=== PATIENT | female | born 1940 | race Caucasian/White ===

== ENCOUNTER → 2016-11-29 | Outpatient (CLI) | payer OTHER ==
[~2016-11-29] VITALS: Ht 160 cm; Wt 76.7 kg
[~2016-11-29] MED LIST: ACETAMINOPHEN325 M1; ACETAMINOPHEN325 M1 PO; ADULT LOW DOSE81 MG PO; ASA81BEC PO; ATORVASTATIN CA40 MG PO; AUGMENTIN 875875 M1; B-100 COMPLEX1 EAC1 PO; BACLOFEN 10MG T10 MG PO; CARBAMAZEPINE100 MG PO; CARBIDOPA-LEVO1 EAC3 PO; CELEBREX 200 M200 M1 PO; CLONAZEPAM 0.50.5 M1 PO; CLONAZEPAM 1 MG1 M1 PO; CLONAZEPAM PO; COLACE100 MG PO; COQ-10100 MG PO; COUMADIN 2 MG TA2 M1; COUMADIN 5 MG TA5 M1; CYCLOBENZAPRINE10 MG PO; CYCLOSET0.8 MG PO; ENOXAPARIN60 MG/0.6 SUBQ; FLAX OIL1000 MG PO; FLEXERIL PO; FLONASE 0.05%50 MCG; GLUCOPHAGE XR500 MG PO; GLUCOPHAGE XR750 MG PO; GLUCOSE4 GM; GLYCOLAX POWDER17 G1 PO; HUMALOG MI100 UNIT/6 SC; HUMALOG PE100 UNIT/1 SUBQ; HYDROCODON-ACE1 EAC5 PO; HYDROCODON-ACE1 EAC7 PO; HYSINGLA ER40 MG PO; IRON325 PO; JANUVIA 50 MG T50 M1 PO; KLONOPIN1 MG PO; LANTUS SUBQ; LANTUSSOLASTAR SQ; LASIX 40 MG TAB40 M1 PO; LEVOTHYROXIN0.025 MG PO; LEVOTHYROXINE0.05 MG PO; LIDODERM 5%1 PATC1 TRANSDERM; LIDODERM 5%1 PATCH TOP; LIORESAL 10 MG10 MG PO; LIPITOR 20 MG T20 M1 PO; LORTAB 5 MG/5001 TA1 PO; LYRICA 75 MG CA75 MG PO; MECLIZINE HCL25 M1 PO; METANX CAPSULE1 EACH PO; METHOCARBAMOL750 MG; METOPROLOL SUCC25 M1 PO; MIRALAX255 GM PO; MOBIC15 MG PO; MOBIC7.5 MG PO; NEURONTIN 300300 M1 PO; NEURONTIN 300M300 M2 PO; NORCO 10-325 T1 EACH PO; NORCO 5-325 TA1 EACH PO; NORTRIPTYLINE H25 M3 PO; NORTRIPTYLINE H50 M3 PO; NOVOLOG100 UNIT/1; NOVOLOG100 UNIT/1 SQ; OXYCODON-ACETA1 EAC1 PO; OXYCODONE HCL5 M1 PO; OXYCODONE-ACET1 EAC2; OXYCONTIN10 M1 PO; OXYCONTIN20 M1 PO; OXYCONTIN20 MG PO; OXYCONTIN30 MG PO; PAXIL10 MG PO; PERCOCET 5-3251 EACH; PERCOCET 7.5-31 EACH PO; PROZAC 20 MG20 M1 PO; QUINAPRIL 20 MG20 MG PO; QUINU10 PD PO; RANEXA1000 MG PO; ROBAXIN500 MG PO; ROSUVASTATIN CA20 MG PO; SAVELLA100 MG PO; SAVELLA50 MG PO; SIMVASTATIN20 MG PO; SIMVASTATIN40 MG PO; TIZANIDINE HCL4 M1 PO; TIZANIDINE HCL4 MG PO; TRICOR48 MG PO; TRILEPTAL 300300 MG PO; UNICOMPLEX M TA1 TA1 PO; VANCOMYCIN HCL 11 G2 IVPB; VISTARIL 25 MG25 M1 PO; VITAMIN D 5050000 I1 PO; VITAMIN D1000 UNI1 PO; VITAMIN D400 UNI1 PO; VOLTAREN GEL 1100 G1 TOP; [UNRECOGNIZED DRUG - OTHER] PO; [UNRECOGNIZED DRUG - SUPPLY]
--- NOTE | ~2016-11-29 | HPC ---
[facility] [address] [place] [address] PAIN MANAGEMENT CONSULTATION Name: ISIDRA DOWNS Room #: REG [facility].#: [id number] Admission: 11/29/16 Attend Phys: Scot Gramajo DO Discharge: Date of : 38 Report #: [id number] THIS REPORT FOR: //name// CC: RITA Gramajo DATE OF SERVICE: 11/29/2016 REFERRING PHYSICIAN: Rita Yanes M.D. CHIEF COMPLAINT: Low back pain. HISTORY OF PRESENT ILLNESS: As you know, the patient is a 76-year-old female who suffers from low back pain due to failed lumbar spine surgery. She ultimately has undergone a spinal cord stimulator implantation with good efficacy. She continues to experience axial back pain due to continued facet arthropathy. She states this axial back pain has become more problematic over time. She wishes to discuss options for treatment. She indicates pain is sharp and throbbing, places pain score at 6/10, states the pain is exacerbated with standing, walking, improves with medications and spinal cord stimulator. The patient has completely weaned off of opioids as she is found them ineffective. She returns to discuss either changes in medication therapy or interventional treatments to determine if her symptoms would be amenable before surgical options be entertained. ALLERGIES: COMPAZINE AND ADHESIVE TAPES. CURRENT MEDICATIONS: Clonazepam, atorvastatin, multivitamins, insulin, paroxetine, aspirin, metoprolol, flaxseed oil, quinapril. IMAGING: No new imaging available. PHYSICAL EXAMINATION: VITAL SIGNS: Blood pressure 121/52, pulse 84, respiratory rate 18, unlabored. The patient is 97% on room air, height 5 feet 3 inches tall, weight 169 pounds, BMI calculated 29.9. GENERAL: Well-developed, well-nourished, well-hydrated 76-year-old female appearing her stated age. She is in no acute distress, awake, alert, oriented x 3. Current pain score 6/10. HEENT: Normocephalic, atraumatic. Pupils equal, round, reactive to light. Extraocular muscles are intact. EXTREMITIES: Show no clubbing, no cyanosis, no edema. MUSCULOSKELETAL: The patient continues to use a roller walker for ambulation. Seated straight leg raising negative. Supine straight leg raising negative. Amber's test negative. Modified Gaenslen's positive for [place] [address] PAIN MANAGEMENT CONSULTATION Name: ISIDRA DOWNS Room #: REG [facility]#: [id number] Admission: 11/29/16 Attend Phys: Scot Gramajo DO Discharge: Date of : 38 Report #: [id number] There is some palpatory tenderness over the paraspinal musculature of lower lumbar spine, no spinous process tenderness. ASSESSMENT: 1. Failed lumbar spine surgery. 2. Post-laminectomy syndrome. 3. Lumbosacral spondylosis without radiculopathy. 4. Chronic intractable pain. 5. 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 PLAN: 1. The patient returns today in followup visit indicating axial back pain issues. As you are aware, the patient suffers from failed lumbar spine surgery and post-laminectomy syndrome. We have implanted a spinal cord stimulator with good efficacy when discussing low back and lower extremity symptoms unfortunately the axial back pain she has been experiencing has progressed. I do feel her symptoms are more related to facet arthropathy. We discussed with the patient treatment options for facet arthropathy pain. The following was discussed with the patient today. The patient and I discussed physical therapy, stretching exercise core strengthening. This will be a major component of the patient's treatment. She will need to reinitiate her physical therapy, stretching exercises. A formalized program may be necessary to help determine the most appropriate physical therapy options for core strengthening and back muscle strengthening. Again, this will be a core treatment option within a garment of treatments for her symptoms. We also discussed medication management with a consistent nonsteroidal anti-inflammatory and all a localized pain patch that can be placed that is nonopioid related. We also discussed with the patient intraarticular facet injections, medial branch nerve blocks, radiofrequency lesioning as possible treatment options and surgical fusion. After reviewing risks and benefits of all proposed treatment options, the patient chose to begin with medication therapy. She is going to consider medial branch nerve blocks as possible treatment option. 2. The patient was provided a prescription of meloxicam 7.5 mg 1 tab p.o. b.i.d. I have given the patient #60, no refills. We wish to trial this medication for the next month. If it is effective, then move forward with continuation of therapy. We will start the patient on the medication today. Review its efficacy at followup visit. 3. The patient is complaining of some continued postherpetic pain. She has requested of our services, Lidoderm patch. Apparently, she was receiving this patch from her primary care physician, but she has had many changes in PCP's and they have stopped prescribing this medication. We have provided the patient with Lidoderm patch #30 and have provided 2 refills. The patient will need to follow up with a PCP for continuation of this therapy. 4. The patient will be continued on clonazepam 1 mg dose. This is to help with [address] [address] PAIN MANAGEMENT CONSULTATION Name: ISIDRA DOWNS Room #: REG [facility]#: [id number] Admission: 11/29/16 Attend Phys: Scot Gramajo DO Discharge: Date of : 38 Report #: [id number] the muscle spasming and restlessness that she experiences at night. She was given #30 tablets, she is to take 1 tab per night, given this prescription with two refills. 5. The patient and I did discuss radiofrequency lesioning as a possible treatment option for her facet arthropathy. We also discussed surgical options. Again, we indicated that for us to continue to treat her symptoms from an axial back pain standpoint, she will need to participate daily in physical therapy initially a formalized program followed by continued home treatment. She understands. She is going to discuss this with family and determine where she wishes to move forward, whether it be interventional or medication management. 6. The patient will return to our clinic on an as needed basis and contact us in regards to her requested treatment. By: [id number] Scot Gramajo DO /nt
[2016-11-29 13:14] VITALS: BP 121/52
== END ==
LOC: PAIN 10:29
DX: M47.817 Spondylosis without myelopathy or radiculopathy, lumbosacral region (principal); M96.1 Postlaminectomy syndrome, not elsewhere classified; G89.29 Other chronic pain; I10 Essential (primary) hypertension; F32.9 Major depressive disorder, single episode, unspecified; Z79.82 Long term (current) use of aspirin; Z79.4 Long term (current) use of insulin

== ENCOUNTER → 2017-03-29 | Outpatient (CLI) | payer OTHER ==
[~2017-03-29] VITALS: Ht 160 cm; Wt 72.1 kg
[~2017-03-29] MED LIST changes: +LIDODERM1 EACH TOP; +NEURONTIN300 MG PO
--- NOTE | ~2017-03-29 | HPC ---
[facility] [address] [address] PAIN MANAGEMENT CONSULTATION Name: ISIDRA DOWNS Room #: REG [facility] Kaylah#: [id number] Admission: 03/29/17 Attend Phys: Scot Gramajo DO Discharge: Date of : 38 Report #: [id number] THIS REPORT FOR: //name// CC: Roly Gramajo DATE OF SERVICE: 03/29/2017 CHIEF COMPLAINT: Low back pain, lower extremity pain and paresthesias. HISTORY OF PRESENT ILLNESS: As you know, the patient is a 76-year-old female who suffers from failed lumbar spine surgery and has undergone a spinal cord stimulator with good improvement in her lower extremity symptoms. Unfortunately, she has point specific pain in the right lower back that causes pain levels of 3/10. States her pain is sharp and aching in sensation, is exacerbated with standing, walking, sitting, improves with spinal cord stimulator and medication. She returns today in followup visit stating that they have adjusted her spinal cord stimulator multiple times and is not covering the lower portion of the back. I did advise the patient at last visit and again this visit that the spinal cord stimulator will not provide improvement in this area. She would need to seek either rhizotomy or some type of more aggressive treatment to address this point specific upper lumbar lower thoracic pain. This is likely due to the surgical issues sustained during the failed lumbar spine surgery. She returns today in followup visit for medication management. ALLERGIES: COMPAZINE AND ADHESIVE TAPE. CURRENT MEDICATIONS: Clonazepam, atorvastatin, multivitamins, insulin, paroxetine, aspirin, metoprolol, flaxseed oil, quinapril, Lidoderm. IMAGING: No new imaging available. PHYSICAL EXAMINATION: VITAL SIGNS: Blood pressure 128/70, pulse is 64, respiratory rate 16, unlabored. The patient is 96% on room air. Height 5 feet 3 inches tall, weight approximately 170 pounds. GENERAL: Well-developed, well-nourished, well-hydrated 76-year-old female appearing stated age, placing pain score today 3/10. HEENT: Normocephalic, atraumatic. Pupils are equal, round, reactive to light. Extraocular muscles are intact. EXTREMITIES: Show no clubbing, no cyanosis, no edema. MUSCULOSKELETAL: The patient uses a roller walker for ambulation. Seated straight leg raising negative. Supine straight leg raising is now negative. Roman's test negative. Modified Gaenslen is positive for some axial low back pain, there is point specific pain located in the upper lumbar lower thoracic [address] [address] PAIN MANAGEMENT CONSULTATION Name: ISIDRA DOWNS Room #: REG [facility]#: [id number] Admission: 03/29/17 Attend Phys: Scot Gramajo DO Discharge: Date of : 38 Report #: [id number] area, appears to be related to the surgical underlying scar tissue and changes. ASSESSMENT: 1. Failed lumbar spine surgery. 2. Post-laminectomy syndrome. 3. Lumbosacral spondylosis with radicular symptoms. 4. Facet arthropathy of the lumbar spine. 5. Neural foraminal stenosis of lumbar spine. 6. Chronic intractable pain. PLAN: 1. The patient returns today in followup visit indicating pain score of 3/10. She states that the spinal cord stimulator is working well for leg and low back symptoms, but is not covering this one point specific area in the upper lumbar lower thoracic area. The patient and I have discussed in the past that options from surgical standpoint could be a rhizotomy of the sensory nerve leading to the area. That would be an option for the patient. I believe more aggressive treatment in this patient's case will be necessary. Conservative medical therapy has failed in trying to alleviate this symptom as had the spinal cord stimulator, though we did not expect the cord stimulator to provide improvement in this area. She has appointment back with her neurosurgeon to discuss options, will defer to the surgery team to discuss the options they may be able to provide. Again, it does not appear that conservative treatment from a pain management standpoint will alleviate the symptoms she is experiencing at this time. 2. The patient was provided a prescription of clonazepam 1 mg dose 1 tab p.o. q.a.m. I have given the patient #30 tablets, 2 refills, 3 months' worth of medication. 3. The patient was provided a prescription of meloxicam 7.5 mg 1 tab p.o. b.i.d., #60, two refills. 4. The patient was provided a prescription of Lidoderm patch 5%. She was given #30 patches to provide analgesia for 12 hours on and 12 hours off. She was given 2 refills, 3 months' worth of Lidoderm patches. 5. We will see the patient back in followup visit in 3 months for medication therapy or earlier if they wish to discuss adjustments in her spinal cord stimulator. By: [id number] Scot Gramajo DO /nt
[2017-03-29 10:24] VITALS: BP 133/70
== END | disposition home or self-care (01) ==
LOC: PAIN 07:21
DX: M47.27 Other spondylosis with radiculopathy, lumbosacral region (principal); G89.29 Other chronic pain; M96.1 Postlaminectomy syndrome, not elsewhere classified; M12.88 Other specific arthropathies, not elsewhere classified, other specified site; Z98.890 Other specified postprocedural states; Z88.6 Allergy status to analgesic agent; Z79.899 Other long term (current) drug therapy

== ENCOUNTER → 2017-06-23 | Outpatient (CLI) | payer OTHER ==
[~2017-06-23] MED LIST changes: +PYRIDIUM200 MG PO; +ZOFRAN ODT8 MG PO
== END ==
LOC: RAD 01:18
DX: Z12.31 Encounter for screening mammogram for malignant neoplasm of breast (principal)

== ENCOUNTER → 2018-05-08 | Outpatient (CLI) | payer OTHER ==
[~2018-05-08] VITALS: Ht 160 cm; Wt 66.2 kg
[~2018-05-08] MED LIST changes: +MIRALAX17 GM PO; +ROXICODONE5 MG PO; +SYNTHROID112 MC1 PO; +VICTOZA0.6 MG/0.1 SUBQ
--- NOTE | ~2018-05-08 | HPC ---
[facility] [address] [place] [address] PAIN MANAGEMENT CONSULTATION Name: ISIDRA DOWNS [facility] [id number] Admission: 05/08/18 Attend Phys: Scot Gramajo DO Discharge: Date of : 38 Report #: [id number] THIS REPORT FOR: //name// CC: Roly HOGUEROS Physician staff DATE OF SERVICE: 05/08/2018 REFERRING PHYSICIAN: Roly Yanes MD CHIEF COMPLAINT: Mid back pain and low back pain. HISTORY OF PRESENT ILLNESS: As you know, the patient is a 77-year-old female who was originally seen by [facility] for failed lumbar spine surgery where she underwent a spinal cord stimulator with good improvement in her lower extremity symptoms, did not get improvement in axial back, though she was warned about this prior to the implantation. She continues to experience axial back pain uncovered by the spinal cord stimulator. The patient reports acute onset of intense upper back pain for which she sought multiple physician treatments ultimately finding out that she had a compression fracture at T12. She underwent vertebral augmentation at an outpatient facility and unfortunately this provided no pain improvement. She was advised by that physician that "he had nothing more to offer and she needed to seek pain management." It appears that the patient had a vertebral augmentation that was suboptimal in its positioning and did not improve the fracture pain that is noted to be most improved with kyphoplasty. She was subsequently referred to our clinic for failed vertebral augmentation. ALLERGIES: COMPAZINE AND ADHESIVE TAPE. CURRENT MEDICATIONS: Lantus, metoprolol, aspirin, paroxetine, quinapril, vitamin D, lovastatin, meloxicam, Victoza, levothyroxine, MiraLax. SOCIAL HISTORY: The patient denies tobacco, alcohol, IV or illicit drug use. She is retired. Accompanied by her , present in room today. IMAGING: There is no new imaging available. PQRS: The patient has known osteoarthritis of the low back, bilateral hips and bilateral knees. No rheumatoid arthritis. She is placing pain intensity today at around 7/10 while seated, 10/10 with activity. She is a fall risk, has had a fall in the last 3 months. She is not on blood thinners. She is treated for hypertension. She is not on opioids. Her pain impact is 70/70, complete interference of daily activities secondary to pain. [address] [address] PAIN MANAGEMENT CONSULTATION Name: ISIDRA DOWNS Room #: REG [facility]#: [id number] Admission: 05/08/18 Attend Phys: Scot Gramajo DO Discharge: Date of : 38 Report #: [id number] PHYSICAL EXAMINATION: VITAL SIGNS: Blood pressure 153/81, pulse 85, respiratory rate 20 and unlabored. The patient is 100% on room air. Height 5 feet 3 inches tall, weight 146 pounds, BMI calculated 25.9. GENERAL: Well-developed, well-nourished, well-hydrated 77-year-old female, emotion is labile, placing current pain score at 7-10/10. HEENT: Normocephalic, atraumatic. Pupils equal, round, reactive to light. NEUROLOGIC: Speech is fluent. LUNGS: Clear, no wheeze, rhonchi or rales. CARDIOVASCULAR: Regular. No appreciable gallop, no rub. ABDOMEN: Soft, mildly obese, normoactive bowel sounds. EXTREMITIES: Show no clubbing, no cyanosis, no edema. MUSCULOSKELETAL: The patient does have some palpatory tenderness over the paraspinal musculature of lower lumbar spine, no spinous process tenderness. The patient is using a roller walker for ambulation. Seated straight leg raising negative. Supine straight leg raising negative. Roman's test negative. Modified Gaenslen's positive for axial low back pain. Ankle clonus negative. Babinski is negative. Muscle bulk and tone symmetrical in lower extremities, deconditioning noted bilaterally. ASSESSMENT: 1. 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 3. Lumbosacral spondylosis with radiculopathy. 4. Facet arthropathy of the lumbar spine. 5. Neural foraminal stenosis of the lumbar spine. 6. Chronic intractable pain. PLAN: 1. The patient has returned to our clinic having undergone an unsuccessful vertebral augmentation at T12. I do not have imaging available, but it appears by her report that the augmentation itself was unsuccessful in alleviating any of her back pain. We will attempt to obtain the imaging of the thoracic spine as I believe that there has been a suboptimal procedure to address the fracture. Unfortunately, this is not amenable to repeating kyphoplasty given the methyl methacrylate that would have been used in the augmentation prior. This leaves us with very little options other than to have the patient begin TLSO bracing and medication management. We do request the patient undergo x-ray imaging at this point, so we can determine the level of pathology that exists, so that we can help direct her care further. 2. The patient will be sent for AP and lateral imaging of the thoracolumbar area. We wish to evaluate the T12 compression fracture itself, determine whether or not the augmentation will ultimately be successful or whether or not more aggressive treatment may be necessary including surgical options. 3. The patient was sent for sizing of a [place] brace. [place] bracing is the [address] [address] PAIN MANAGEMENT CONSULTATION Name: ISIDRA DOWNS Room #: REG [facility]#: [id number] Admission: 05/08/18 Attend Phys: Scot Gramajo DO Discharge: Date of : 38 Report #: [id number] previous gold standard for treatment for compression fractures of the thoracolumbar area. The bracing was trialled here with a similar device and she reported good improvement in symptoms while seated and standing. I will send the patient for the Paul bracing to be fitted in the next 24-48 hours. 4. The patient will be started on oxycodone. I have given her 5 mg tablets 1 tab p.o. t.i.d. p.r.n. pain, #90. I have advised the patient to take this medication only when pain is intolerable, not to rely on this medication prophylactically. She will watch for side effects of somnolence, decreased mental acuity, disorientation, confusion and constipation with its use. 5. We will see the patient back in followup visit in approximately one month. Hopefully, at that time, her back pain has begun to improve. She will be utilizing the [place] bracing when seated and standing. We will obtain film at next visit of the thoracolumbar area to determine whether or not there has been corticalization of the T12 fracture and we can begin to wean her off the bracing system. By: [id number] Scot Gramajo DO /saroj
[2018-05-08 13:35] VITALS: BP 153/81
== END | disposition home or self-care (01) ==
LOC: PAIN 06:39
DX: M47.27 Other spondylosis with radiculopathy, lumbosacral region (principal); M12.88 Other specific arthropathies, not elsewhere classified, other specified site; M99.73 Connective tissue and disc stenosis of intervertebral foramina of lumbar region; G89.29 Other chronic pain; E11.22 Type 2 diabetes mellitus with diabetic chronic kidney disease; I12.9 Hypertensive chronic kidney disease with stage 1 through stage 4 chronic kidney disease, or unspecified chronic kidney disease; N18.9 Chronic kidney disease, unspecified; Z88.8 Allergy status to other drugs, medicaments and biological substances; Z91.09 Other allergy status, other than to drugs and biological substances; Z79.899 Other long term (current) drug therapy; Z79.4 Long term (current) use of insulin; Z79.82 Long term (current) use of aspirin

== ENCOUNTER → 2018-05-30 | Outpatient (CLI) | payer OTHER ==
[~2018-05-30] VITALS: Ht 160 cm; Wt 65.4 kg
[~2018-05-30] MED LIST changes: +METHOCARBAMOL500 M2 PO
--- NOTE | ~2018-05-30 | HPC ---
[facility] [address] [place] [address] PAIN MANAGEMENT CONSULTATION Name: ISIDRA DOWNS Room #: REG [facility] Kaylah#: [id number] Admission: 05/30/18 Attend Phys: Scot Gramajo DO Discharge: Date of : 38 Report #: [id number] THIS REPORT FOR: //name// CC: Dr. Corrina CLARKE Physician staff DATE OF SERVICE: 05/30/2018 REFERRING PHYSICIAN: Dr. Corrina Clarke. CHIEF COMPLAINT: Mid back pain and low back pain. HISTORY OF PRESENT ILLNESS: As you know, the patient is a 77-year-old female originally seen by [facility] for failed lumbar spine surgery and underwent spinal cord stimulator implant with good improvement in her symptoms. She underwent implantation of the spinal cord stimulator, but is having difficulty with obtaining improvement in low back symptoms. She has been experiencing axial back pain due to facet changes for some time. She was lost to followup visit until she returned after undergoing an unsuccessful vertebral augmentation at the T12 level, which provided according to the patient no improvement in symptoms. She returned to discuss treatment options. She is having increasing back pain for which she was placed in a TLSO brace. She returns for medication adjustments and discuss her increasing back pain of late. No new injury, no new trauma. ALLERGIES: COMPAZINE AND ADHESIVE TAPE. CURRENT MEDICATIONS: Lantus, metoprolol, aspirin, paroxetine, quinapril, vitamin D, lovastatin, meloxicam, Victoza, levothyroxine, MiraLax, oxycodone, clonazepam. SOCIAL HISTORY: The patient denies tobacco, alcohol, IV or illicit drug use. She is retired, retired years ago, unaccompanied today. IMAGING: No new imaging available. PQRS: The patient has known osteoarthritic change to the low back, bilateral hips, bilateral knees and no rheumatoid arthritis. She is placing pain intensity at this visit as 2-3/10. She is a fall risk and has had multiple falls in the last 3 months. She is not on blood thinners. She is treated for hypertension. She is on opioids, but not for an extended period of time. Pain impact score rated at 60/70, near complete interference of daily activities secondary to pain. [address] [address] PAIN MANAGEMENT CONSULTATION Name: ISIDRA DOWNS Room #: REG [facility]#: [id number] Admission: 05/30/18 Attend Phys: Scot Gramajo DO Discharge: Date of : 38 Report #: [id number] PHYSICAL EXAMINATION: VITAL SIGNS: Blood pressure 110/52, pulse 65, respiratory rate 20 and unlabored. The patient is 100% on room air. Height 5 feet 3 inches tall, weight 144.2 pounds, BMI calculated 25.6. GENERAL: Well-developed, well-nourished, well-hydrated 77-year-old female appearing stated age, placing current pain score around 2-3/10. HEENT: Normocephalic, atraumatic. Pupils equal, round, reactive to light. Extraocular muscles are intact. Sclerae nonicteric without injection. NEUROLOGIC: Cranial nerves 2-12 grossly intact. Speech is fluent. EXTREMITIES: Show no clubbing, no cyanosis, no edema. MUSCULOSKELETAL: The patient has some palpatory tenderness noted over the T11-T12 area. No erythema, no drainage, no changes in skin color or texture concerning of zoster. Deep inhalation and exhalation causes intensification of pain. Seated straight leg raising negative. Supine straight leg raising negative. Roman's test negative. Modified Gaenslen's positive for axial low back pain. ASSESSMENT: 1. 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 3. Lumbosacral spondylosis with radiculopathy. 4. Facet arthropathy of the lumbar spine. 5. Neural foraminal stenosis of lumbar spine. 6. Chronic intractable pain. PLAN: 1. The patient has returned today in followup visit with ever increasing back pain in and around the T12 level. I am concerned of a possible fracture, either above or below the T12 that may be contributing to the patient's symptoms. I will recommend the patient undergo x-ray imaging immediately. We will obtain AP and lateral x-ray imaging, if fractures are noted, we will contact the patient. The patient will undergo this x-ray imaging today. She can call for findings tomorrow. 2. The patient was provided prescription of oxycodone 5 mg dose 1 tab p.o. t.i.d. I have given the patient #90 tablets, releasing today and 4 weeks from today, 2 months' worth of medication. I advised the patient to take the medication only when pain is intolerable, not to rely on the medication prophylactically. 3. We will contact the patient once the x-ray imaging is completed. We will discuss the findings and determine if interventional treatments or medication management with TLSO bracing would be appropriate. By: [id number] Scot Gramajo DO /nt
[2018-05-30 11:06] VITALS: BP 110/52
== END ==
LOC: PAIN 10:09
DX: M54.6 Pain in thoracic spine (principal); I10 Essential (primary) hypertension

== ENCOUNTER → 2018-06-05 | Outpatient (CLI) | payer OTHER ==
[~2018-06-05] VITALS: Ht 160 cm; Wt 65.8 kg
--- NOTE | ~2018-06-05 | HPC ---
[facility] [place] [address] PAIN MANAGEMENT CONSULTATION Name: ISIDRA DOWNS Room #: REG [facility].#: [id number] Admission: 06/05/18 Attend Phys: Scot Gramajo DO Discharge: Date of : 38 Report #: [id number] THIS REPORT FOR: //name// CC: Roly Simon Physician staff DATE OF SERVICE: 06/05/2018 CHIEF COMPLAINT: Mid back pain. HISTORY OF PRESENT ILLNESS: As you know, the patient is a 77-year-old female who suffered a spontaneous vertebral compression fracture at T12 with unsuccessful vertebral augmentation with continued pain. She continued to experience symptoms for which she was seen last week. I was concerned of possible spontaneous fracture of a vertebral level either above or below the compression fracture at T12, which is fairly typical in osteoporotic patients. We sent the patient for x-ray imaging and it did show deformity of T11, which is new compression fracture from the study of 05/08/2018. She returns today to discuss treatment options for this compression fracture found on x-ray imaging. ALLERGIES: COMPAZINE AND ADHESIVE TAPE. CURRENT MEDICATIONS: Lantus, metoprolol, aspirin, paroxetine, quinapril, vitamin D, lovastatin, meloxicam, Victoza, levothyroxine, MiraLax, and oxycodone. SOCIAL HISTORY: The patient denies tobacco, alcohol, IV or illicit drug use. She is retired. She is accompanied by her , her daughter and both had been present in room today. IMAGING: No new imaging available. PQRS: The patient has known osteoarthritic changes of low back, bilateral hips and bilateral knees. No rheumatoid arthritis. She is placing pain intensity today at a level of 5/10. She is not a fall risk and has not had a fall in the last few months. She is not on blood thinner. She is treated for hypertension. She has been on chronic opioids, but has a low addiction potential. She is placing pain impact score at 59/70 severe interference of daily activities secondary to pain. PHYSICAL EXAMINATION: VITAL SIGNS: Blood pressure 136/67, pulse is 71, respiratory rate 14 and unlabored. The patient is 98% on room air. Height 5 feet 3 inch tall, weight [address] [address] PAIN MANAGEMENT CONSULTATION Name: ISIDRA DOWNS Room #: [facility].#: [id number] Admission: 06/05/18 Attend Phys: Scot Gramajo DO Discharge: Date of : 38 Report #: [id number] 145 pounds and BMI calculated 25.7. GENERAL: Well-developed, well-nourished, well-hydrated 77-year-old female, appears her stated age. She is in mild distress secondary to pain, placing current pain score 5/10. HEENT: Normocephalic and atraumatic. Pupils are equal, round and reactive to light. EXTREMITIES: Show no clubbing, no cyanosis and no edema. MUSCULOSKELETAL: There is palpatory tenderness noted over the paraspinal musculature of the lower lumbar spine. This is fairly typical for the patient. Well-healed surgical scars. A spinal cord stimulator is in place and appears to be functioning. Seated straight leg raising is negative. Supine straight leg raising is negative. Roman's test negative. Modified Gaenslen's positive for axial low back pain. ASSESSMENT: 1. Acute T11 vertebral compression fracture. 2. Failed vertebral augmentation at T12. 3. Failed lumbar spine surgery. 4. Lumbosacral spondylosis with radiculopathy. 5. Facet arthropathy of the lumbar spine. 6. Lumbar degeneration. 7. Osteoporosis. 8. Chronic intractable pain. PLAN: 1. The patient returns today in followup visit where we have reviewed her recent x-ray imaging. The x-ray imaging does show a new compression fracture of T11. The new compression fracture was not seen on the imaging study of 05/08/2018. This is likely due to a change in mechanical forces from the T12 compression fracture. The patient and I discussed treatment options for the T11 compression fractures and following discuss today. We discussed physical therapy, stretching exercise, core strengthening as a treatment option. We discussed TLSO bracing to maintain stability allowing the T11 fracture to heal over time. We discussed TLSO bracing with medication management to adjust medications to address ongoing pain issues while she continues to utilize the TLSO brace for stabilization. We also discussed kyphoplasty procedure be performed under general anesthesia to address the T11 compression fracture with bilateral balloon deployment allowing us to stabilize the bone more effectively. After reviewing the risks and benefits of all the proposed treatment options, the patient chose to undergo kyphoplasty procedure at the T11 level. 2. The patient will be established an appointment at our [facility] office on morning 7:30 a.m. to undergo kyphoplasty procedure at T11. She was advised to be at the [facility] facility at 6:30 in the morning to be checked in from a surgical standpoint. Start time for the [address] [address] PAIN MANAGEMENT CONSULTATION Name: ISIDRA DOWNS Room #: REG [facility]da#: [id number] Admission: 06/05/18 Attend Phys: Scot Gramajo DO Discharge: Date of : 38 Report #: [id number] procedure will be 07:30. We will have surgery contact the patient about preparations for that surgery scheduled for 06/07/2018. 3. We will see the patient back in followup visit once she has completed the kyphoplasty procedure. We will discuss efficacy at that followup visit. By: [id number] Scot Gramajo DO /nt
[2018-06-05 12:53] VITALS: BP 136/67
== END ==
LOC: PAIN 11:50
DX: M47.27 Other spondylosis with radiculopathy, lumbosacral region (principal); S22.080A Wedge compression fracture of T11-T12 vertebra, initial encounter for closed fracture; M51.16 Intervertebral disc disorders with radiculopathy, lumbar region; M12.88 Other specific arthropathies, not elsewhere classified, other specified site; M81.0 Age-related osteoporosis without current pathological fracture; G89.4 Chronic pain syndrome; X58.XXXA Exposure to other specified factors, initial encounter; Y93.89 Activity, other specified; Y92.89 Other specified places as the place of occurrence of the external cause; Y99.8 Other external cause status; Z79.899 Other long term (current) drug therapy

== ENCOUNTER → 2018-06-13 | Outpatient (CLI) | payer OTHER ==
[~2018-06-13] VITALS: Ht 160 cm; Wt 66.0 kg
[2018-06-13 11:34] VITALS: BP 131/51
== END ==
LOC: PAIN 06:52
DX: M54.5 Low back pain (principal); G89.29 Other chronic pain; M43.26 Fusion of spine, lumbar region

== ENCOUNTER → 2018-07-12 | Outpatient (CLI) | payer OTHER | LOC: ULTRA 07-09 10:33 | DX: S92.414A Nondisplaced fracture of proximal phalanx of right great toe, initial encounter for closed fracture (principal); E11.9 Type 2 diabetes mellitus without complications; I70.211 Atherosclerosis of native arteries of extremities with intermittent claudication, right leg; M19.071 Primary osteoarthritis, right ankle and foot; X58.XXXA Exposure to other specified factors, initial encounter; Y93.89 Activity, other specified; Y92.89 Other specified places as the place of occurrence of the external cause; Y99.8 Other external cause status; Z79.4 Long term (current) use of insulin ==

== ENCOUNTER → 2018-07-20 | Outpatient (CLI) | payer OTHER ==
--- NOTE | 2018-07-20 11:58 | NUR ---
VASCULAR ACCESS CONSULTED FOR PICC LINE FOR HOME ABX. PT'S LABS,MEDS,HISTORY, ORDER AND CONSENT VERIFIED. DISCUSSED BENEFITS AND RISKS OF PICC WITH PT,VERBALIZED UNDERSTANDING. ZAINAB BRACHIAL WAS WIDELY PATENT WITH USG, 1% LIDOCAINE GIVEN SQ. 4FR SL POWER PICC TRIMMED TO 37CM INSERTED TO 0CM WITH BRISK BR. PICC SECURED AND STAT CXR OBTAINED. WALLET CARD AND HOME CARE INSTRUCTION SHEET GIVEN TO PT.
--- NOTE | 2018-07-20 12:07 | NUR ---
CXR CONFIRMED PLACEMENT IN SVC, PICC RELEASED FOR IMMEDIATE USE PER PROTOCOL TO BRAYDON MACKEY
[2018-07-20 12:30] VITALS: BP 142/59
[2018-07-20 13:45] VITALS: BP 142/59
--- NOTE | 2018-07-20 13:45 | NUR ---
HERE FOR PICC LINE PLACEMENT (DONE BY VASCULAR ACCESS TEAM) AND 1ST DOSE CEFAZOLIN. HAS CEFAZOLIN ORDERED Q8H HOME INFUSION, VERIFIED WITH DR. AUGUSTE PT THOUGHT THIS WAS TO BE BID. [employer] NURSE, ZARINA, HERE TO DO PT TEACHING AND SPENT NEARLY 1.5 HOURS WITH PT AND HER TEACHING ABOUT PICC CARE, HOW TO INFUSE THE ANTIBIOTIC, ETC. INFUSION English Helper WILL ALSO REPORT TO THE PT'S HOME TONITE TO REINFORCE TEACHING, DELIVER MEDICINE AND MONITOR PT/ COMPETENCY WITH INFUSION. PT TOLERATED TODAY'S INFUSION WITHOUT INCIDENT, NO S/S REACTION. PT IS C/O WT LOSS AND TROUBLE EATING. FEELS THAT THINGS GET STUCK TRYING TO GO DOWN S/P THYROID CA AND XRT. ENCOURAGED PT TO REPORT THIS POLLY TO HER PCP AND SEE ABOUT GETTING A GI CONSULT FOR POSSIBLE DILATION. PT STATES SHE WILL SEE DR. MOSLEY NEXT WEEK AND ADDRESS IT WITH HIM. FEELS HE WILL F/U. PT DID HAVE A FALL IN DEC WITH COMPRESSION FX BUT HAS BEEN UNDER MEDICAL CARE FOR THIS. USES A WALKER AT HOME FOR SAFETY. DISMISSED POST INFUSION IN STABLE CONDITION. PICC SITE LOOKS GOOD. TUBING SECURED WITH SLIGHT COMPRESSION SLEEVE.
== END ==
LOC: OPONC 06:22
DX: L03.031 Cellulitis of right toe (principal)
CPT/HCPCS: 27000; 95000

== ENCOUNTER → 2018-11-06 | Outpatient (CLI) | payer OTHER ==
[~2018-11-06] VITALS: Ht 160 cm; Wt 62.5 kg
[~2018-11-06] MED LIST changes: +DURAGESIC1 EAC4 TRANSDERM
[2018-11-06 11:14] VITALS: BP 131/73
--- NOTE | 2018-11-06 11:30 | NUR ---
Pain Clinic Assessment: 1. History of Osteoarthritis: Not Applicable History of Rheumatoid Arthritis: Not Applicable 2. Height: 5 ft. 3 in. 160.0 cm. Weight: 137.8 lb. oz. 62.506 kg. Patient's BMI: 24.4 3. Vital Signs: BP: 131/73 Pulse: 60 Resp: 16 Temp: 02 Sat: 100 ECG Mon: 4. Pain Intensity: 4 5. Fall Risk: Dizziness: Y Needs help standing or walking: Y Fallen in the last 3 months: Y Fall risk comments: 0 6. Patient on Blood Thinner: None 7. History of Hypertension: Y 8. Opioid Therapy greater than 6 weeks: N Opiate Contract Signed: 01/20/16 9. Risk Assessment Tool Provided: 2-low 10. Functional Assessment Tool: / 11. Recreational Drug Use: Never Drug Type: Tobacco Use: Never Smoker Tobacco Type: Amount or Packs/day: How Many Years: Alcohol Use: No Frequency: Quant:
--- NOTE | 2018-11-13 08:15 | HPC ---
[facility] [address] [place] [address] PAIN MANAGEMENT CONSULTATION Name: ISIDRA DOWNS [facility] [id number] Admission: 11/06/18 ������������������ Attend Phys: Scot Gramajo DO Discharge: ������������������ Date of : 38 Report #: [id number] THIS REPORT FOR: //name// CC: Scot Simon MD DATE OF SERVICE: 11/06/2018 REFERRING PHYSICIAN: Corrina Simon MD CHIEF COMPLAINT: Mid back pain, low back pain and lower extremity pain. HISTORY OF PRESENT ILLNESS: As you know, the patient is an 78-year-old female with longstanding history of mid back pain, low back pain and bilateral lower extremity pain. She returns today in followup visit stating that medications are beginning to lose efficacy. She has undergone various treatments including epidural injections, medial branch nerve blocks, radiofrequency lesioning of the lumbar spine. She has undergone bracing for the T12 fracture that has healed. She has trialed multiple medications, undergone spinal cord stimulator therapy. Despite all these interventional treatments and directions for therapy, she continues to experience pain. She returns today stating pain is throbbing, sharp and pressure in sensation. It is exacerbated with standing, walking, sitting activities and improves with medications, sitting, heat and cold compresses and rest. She places pain score 4/10. She returns today to discuss possible adjustments in medication management. ALLERGIES: COMPAZINE AND ADHESIVE TAPE. CURRENT MEDICATIONS: Lantus, metoprolol, aspirin, paroxetine, quinapril, vitamin D, lovastatin, meloxicam, Victoza, levothyroxine, MiraLax and oxycodone. SOCIAL HISTORY: The patient denies tobacco, alcohol, IV or illicit drug use. She is retired, retired years ago. She is unaccompanied today. IMAGING: No new imaging available. PQRS: The patient has known osteoarthritic changes of the lumbar spine, bilateral hips and bilateral knees. No rheumatoid arthritis. She is placing pain today at around 4/10. She is a fall risk and has had a fall in the last 3 months. She is utilizing a roller walker for ambulation and balance. She is not on a blood thinner. She is treated for hypertension. She is on long-term opioid medications. She is a low risk for opioid addiction. She is placing pain impact score at 59/70 indicating severe near complete interference of daily activities secondary to pain. [address] [address] PAIN MANAGEMENT CONSULTATION Name: ISIDRA DOWNS [id number] Admission: 11/06/18 ������������������ Attend Phys: Scot Gramajo DO Discharge: ������������������ Date of : 38 Report #: [id number] PHYSICAL EXAMINATION: VITAL SIGNS: Blood pressure 131/73, pulse 60, respiratory rate 16 and unlabored. The patient saturates 100% on room air. Height 5 feet 3 inches tall, weight 137.8 pounds, BMI calculated 24.4. GENERAL: Well-developed, well-nourished, well-hydrated 78-year-old female who appears her stated age, placing pain today at 4/10. HEENT: Normocephalic, atraumatic. Pupils equal, round, reactive to light. EXTREMITIES: Show no clubbing, no cyanosis and no edema. MUSCULOSKELETAL: Palpatory tenderness is once again noted over the paraspinal musculature of the thoracic and lumbar spine. No spinous process tenderness. Well-healed surgical scars noted in the lumbar region. Spinal cord stimulator is in place. Seated straight leg raising negative. Supine straight leg raising negative. Roman's test negative. Modified Gaenslen's positive for axial low back pain. Gait is antalgic. She is utilizing a roller walker for ambulation. ASSESSMENT: 1. Vertebral compression fracture of thoracic spine. 2. Failed lumbar augmentation at T12. 3. Failed lumbar spine surgery. 4. Lumbosacral spondylosis with radiculopathy. 5. Facet arthropathy of the lumbar spine. 6. Lumbar degeneration. 7. Opioid dependency. 8. Osteoporosis. 9. Chronic intractable pain. PLAN: 1. The patient returns today in followup visit indicating worsening of overall pain. She is quite emotionally distraught today. She feels that she has run out of options for treatment. We recommend possibility of making adjustments in medication management today in hopes of providing better pain control. I did advise the patient that escalating opioid medications can come with complications of somnolence, decreased mental acuity, disorientation, confusion and mental slowing. The patient states she understood and will watch for these side effects. We are most concerned with this patient with disorientation and constipation issues for which she will monitor carefully. We have agreed to make adjustments in medication management today in hopes of improving pain. 2. We will start the patient on a fentanyl patch 25 mcg patch q. 72 hours. This will be her new baseline pain medication. She will watch for any side effects with its use. We recommend application to the deltoid muscles either the left or right side and she should alternate arms every 3 days. We have given the patient a prescription of fentanyl 25 mcg patch 1 patch q. 72 hours #10 with releases of today and 4 weeks from today, 2 months' worth of medication. The patient will contact our clinic with any questions or concerns about its use. 3. The patient was provided a refill prescription of oxycodone 5 mg dose 1 [facility] [address] [place] [address] PAIN MANAGEMENT CONSULTATION Name: ISIDRA DOWNS Room #: REG [facility]#: [id number] Admission: 11/06/18 ������������������ Attend Phys: Scot Gramajo DO Discharge: ������������������ Date of : 38 Report #: [id number] tablet p.o. t.i.d. I have given the patient #90 tablets releasing today and 4 weeks from today. We will continue this medication for breakthrough pain control. I am hopeful she will not need to utilize this medication further with the initiation of the fentanyl patch. 4. The patient was provided refill prescription of clonazepam 1 mg dose 1 tablet p.o. at bedtime. I gave the patient #30 tablets and 1 refill. We have provided this for a refill for the original prescribing physician. She will follow up with her PCP for continuation of this medication as this has no analgesic benefit. She will need to follow up with her PCP in regards to her sleep issues as well. 5. We will see the patient back in followup visit in 2 months for medication management and discuss other treatment options. ��������������������������������������������� <ELECTRONICALLY SIGNED> ���������������������������������������� By: Scot Gramajo DO ��������������������������������������������� 11/13/18 [id number] Scot Gramajo, DO /nt
== END ==
LOC: PAIN 06:48
DX: G89.29 Other chronic pain (principal); M47.816 Spondylosis without myelopathy or radiculopathy, lumbar region; M47.27 Other spondylosis with radiculopathy, lumbosacral region; M17.0 Bilateral primary osteoarthritis of knee; M16.0 Bilateral primary osteoarthritis of hip; Z88.8 Allergy status to other drugs, medicaments and biological substances; Z91.09 Other allergy status, other than to drugs and biological substances; Z79.899 Other long term (current) drug therapy; Z79.891 Long term (current) use of opiate analgesic

== ENCOUNTER → 2019-02-13 | Outpatient (CLI) | payer OTHER ==
[~2019-02-13] VITALS: Ht 160 cm; Wt 63.0 kg
--- NOTE | ~2019-02-13 | HPC ---
[facility] [address] [place] [address] PAIN MANAGEMENT CONSULTATION Name: ISIDRA DOWNS Room #: REG GENAnne Adrian#: [id number] Admission: 02/13/19 Attend Phys: Scot Gramajo DO Discharge: Date of : 38 Report #: [id number] THIS REPORT FOR: //name// CC: Dr. Corrina Simon DATE OF SERVICE: 02/13/2019 CHIEF COMPLAINT: Mid back pain, low back pain and lower extremity pain. HISTORY OF PRESENT ILLNESS: As you know, the patient is a pleasant 78-year-old female with longstanding history of midback pain, low back pain, bilateral lower extremity pain. She returns today in followup visit for medication management. She has had multiple spontaneous vertebral compression fractures, which have been treated with vertebral augmentation. It does appear that the most recent augmentation led to extravasation of cement within the vascular tree of the lungs. The patient continues to experience shortness of breath, for which she sought evaluation through Pulmonary, who indicates there is "nothing they can do." She returns today for medication management stating her pain is approximately the same as it was at last visit. There has been no significant change. She has been able to go about majority of activities of daily living with the use of the medication, but does request refills again today. She is denying any side effects of sleepiness, disorientation, confusion, mental slowing with use of therapy. She returns requesting this refill to be provided today to address the 8-10/10 pain that she describes as throbbing, sharp and pressure in sensation, exacerbated with standing, walking, sitting and activity, improves with medications, sitting down, heat and cold compresses. ALLERGIES: COMPAZINE and ADHESIVE TAPE. CURRENT MEDICATIONS: Lantus, metoprolol, aspirin, paroxetine, quinapril, vitamin D, lovastatin, meloxicam, Victoza, levothyroxine, MiraLax, fentanyl and oxycodone. SOCIAL HISTORY: The patient denies tobacco, alcohol, IV or illicit drug use. She is retired, retired years ago. Unaccompanied today. IMAGING: No new imaging available. PQRS: The patient has known arthritic changes of the lumbar spine, bilateral hips and knees. No rheumatoid arthritis. She is a fall risk and utilizes a roller walker. She has had 1 fall in the last 3 months, where she "got tangled up." She has been advised how to utilize the walker more effectively and she is not to ambulate without it. She is not on blood thinner. She is treated for hypertension. She is on chronic opioids, has a [id number]-[id number] addiction [address] [address] PAIN MANAGEMENT CONSULTATION Name: ISIDRA DOWNS Room #: REG VASHTI Adrian#: [id number] Admission: 02/13/19 Attend Phys: Scot Gramajo DO Discharge: Date of : 38 Report #: [id number] potential based on our testing. She is placing pain impact score 59/70, severe interference of daily activities secondary to pain. PHYSICAL EXAMINATION: VITAL SIGNS: Blood pressure 159/73, pulse is 82, respiratory rate 16 and unlabored. The patient is 100% on room air. Height 5 feet 3 inches tall, weight 138.8 pounds, BMI calculated 24.6. GENERAL: Well-developed, well-nourished, well-hydrated 78-year-old female appearing stated age, pain is rated anywhere from 8-10/10. HEENT: Normocephalic, atraumatic. Pupils equal, round, reactive to light. Speech fluent. The patient deemed a good historian. EXTREMITIES: Show no clubbing, no cyanosis, and no edema. MUSCULOSKELETAL: The patient remains tender to palpation throughout the paraspinal musculature of the mid thoracic, lower thoracic and the entire lumbar area. No spinous process tenderness. Seated straight leg raising negative. Supine straight leg raising is negative. Roman's test negative. Modified Gaenslen's positive for axial low back pain. Ankle clonus negative. Gait remains antalgic. She does use a gait device in the form of a roller walker for ambulation. ASSESSMENT: 1. Multiple vertebral compression fractures, status post vertebral augmentation with extravasation of glue into the lung. 2. Failed lumbar spine surgery. 3. Lumbosacral spondylosis with radiculopathy. 4. Facet arthropathy of the lumbar spine. 5. Lumbar degeneration. 6. Opioid dependency. 7. Osteoporosis. 8. Chronic intractable pain. PLAN: 1. The patient returns today in followup visit for medication management. We have had a long discussion with the patient in regards to opioid medications and their potential removal from the market. There are multiple loss she is currently going through the courts that may ultimately make it impossible to write continued opioid medication. I have advised the patient at this point, medications remain available and we do recommend that she continue to use these as she is seeing benefit, even though she is reporting an 8/10 pain today. When these medications become less effective, we would discuss weaning and possible discontinuation as they will not be available long-term. The patient is made aware. We reviewed the fact that opiate medications are being used to provide analgesia adequate to support activities of daily living, not attempting to achieve a specific pain score on the 0-10 Visual Analog Scale. The current opiate [address] [place] [address] PAIN MANAGEMENT CONSULTATION Name: ISIDRA DOWNS Room #: REG GENAnne Adrian#: [id number] Admission: 02/13/19 Attend Phys: Scot Gramajo DO Discharge: Date of : 38 Report #: [id number] medications are providing sufficient analgesia to allow the patient to participate in activities of daily living. The patient is not exhibiting any aberrant behavior suggestive of drug diversion. The patient is not having any adverse reactions to medications. The patient is not suffering from daytime somnolence or mental acuity changes. The patient is managing opiate-induced constipation with appropriate [id number]-[id number] agents and dietary considerations. The patient was counseled on concern for caution with operating a motor vehicle while using opiate medications. A physical exam was performed and the patient's functional status was evaluated. All patients with back pain were advised against the bed rest greater than 4 days and were advised to return to normal activities. Pain score assessment was noted and the treatment plan was reviewed with the patient. All current medications, both prescribed and OTC were reviewed and reconciled on the electronic medical record. Tobacco screening was accomplished and smoking cessation was advised when indicated. BMI was noted and diet/exercise modification was recommended for all patients following outside normal parameters. I reviewed with the patient today their responsibilities to safeguard prescription medications, reviewed their responsibility to utilize medications only as prescribed by the physician. They are to seek and receive pain medications only from 1 physician group ( [facility]). They are to use 1 pharmacy and keep the clinic informed if they change pharmacies. Their responsibilities include making followup visits in a timely fashion and to avoid abrupt discontinuation of medication usage. Their responsibilities further include bringing their medications (bottles from the pharmacy with residual pills) to the visit for possible confirmation of pill counts and the patient understands it is their responsibility to submit to random drug screens to ensure both that the medications prescribed are present, and that no other controlled substances are present. All prescriptions provided today were generated electronically. 2. The patient was provided prescription of clonazepam 1 mg dose 1 tab p.o. at bedtime. I have given the patient #30 tablets, 1 refill, 2 months' worth of medication. The patient will take this medication only as necessary for anxiety. 3. The patient was provided a prescription of fentanyl 25 mcg patch 1 patch q. 72 hours, I have given the patient 10 patches releasing today and 4 weeks from today, 2 months' worth of medication. The patient was advised to utilize the medication appropriately. We have reviewed the patient's PDMP and there has been no aberrant entries. 4. The patient was provided prescription of oxycodone 5 mg dose 1 tab p.o. q.i.d., #90 tablets, releasing today and 4 weeks from today, 2 months' worth of medication. The patient was advised to take the medication as directed, not to take the medication prophylactically. [address] [address] PAIN MANAGEMENT CONSULTATION Name: ISIDRA DOWNS [facility] #: [facility] [id number] Admission: 02/13/19 Attend Phys: Scot Gramajo DO Discharge: Date of : 38 Report #: [id number] 5. We will see the patient back in followup visit in 2 months for medication management, earlier for adjustments in therapy. By: [id number] Scot Gramajo DO /nt
[2019-02-13 09:38] VITALS: BP 159/73
--- NOTE | 2019-02-13 09:41 | NUR ---
Pain Clinic Assessment: 1. History of Osteoarthritis: Not Applicable History of Rheumatoid Arthritis: Not Applicable 2. Height: 5 ft. 3 in. 160.0 cm. Weight: 138.8 lb. oz. 62.959 kg. Patient's BMI: 24.6 3. Vital Signs: BP: 159/73 Pulse: 82 Resp: 16 Temp: 02 Sat: 100 ECG Mon: 4. Pain Intensity: 8-10 5. Fall Risk: Dizziness: N Needs help standing or walking: N Fallen in the last 3 months: Y Fall risk comments: 0 6. Patient on Blood Thinner: None 7. History of Hypertension: Y 8. Opioid Therapy greater than 6 weeks: N Opiate Contract Signed: 01/20/16 9. Risk Assessment Tool Provided: 2-low 10. Functional Assessment Tool: 11. Recreational Drug Use: Never Drug Type: Tobacco Use: Never Smoker Tobacco Type: Amount or Packs/day: How Many Years: Alcohol Use: No Frequency: Quant:
== END ==
LOC: PAIN 06:44
DX: M43.8X4 Other specified deforming dorsopathies, thoracic region (principal); M47.26 Other spondylosis with radiculopathy, lumbar region; G89.4 Chronic pain syndrome; M81.0 Age-related osteoporosis without current pathological fracture; F11.20 Opioid dependence, uncomplicated; M51.16 Intervertebral disc disorders with radiculopathy, lumbar region; M12.88 Other specific arthropathies, not elsewhere classified, other specified site; M41.84 Other forms of scoliosis, thoracic region; Z79.899 Other long term (current) drug therapy; Z91.048 Other nonmedicinal substance allergy status; Z79.4 Long term (current) use of insulin; Z88.8 Allergy status to other drugs, medicaments and biological substances; W19.XXXA Unspecified fall, initial encounter

== ENCOUNTER → 2019-04-09 | Outpatient (CLI) | payer OTHER | LOC: RAD 04-02 03:13 | DX: Z12.31 Encounter for screening mammogram for malignant neoplasm of breast (principal) ==

== ENCOUNTER → 2019-05-28 | Outpatient (CLI) | payer OTHER ==
[~2019-05-28] VITALS: Ht 157.5 cm; Wt 64.0 kg
[~2019-05-28] MED LIST changes: +HYDROCODONE-AP1 EA11 PO
[2019-05-28 12:45] VITALS: BP 109/64
--- NOTE | 2019-05-28 12:50 | NUR ---
Pain Clinic Assessment: 1. History of Osteoarthritis: Not Applicable History of Rheumatoid Arthritis: Not Applicable 2. Height: 5 ft. 2 in. 157.5 cm. Weight: 141.0 lb. oz. 63.957 kg. Patient's BMI: 25.8 3. Vital Signs: BP: 109/64 Pulse: 76 Resp: 16 Temp: 02 Sat: 98 ECG Mon: 4. Pain Intensity: 2 sitting, 10 walking 5. Fall Risk: Dizziness: N Needs help standing or walking: N Fallen in the last 3 months: N Fall risk comments: 0 6. Patient on Blood Thinner: None 7. History of Hypertension: Y 8. Opioid Therapy greater than 6 weeks: N Opiate Contract Signed: 01/20/16 9. Risk Assessment Tool Provided: 2-low 10. Functional Assessment Tool: 11. Recreational Drug Use: Never Drug Type: Tobacco Use: Never Smoker Tobacco Type: Amount or Packs/day: How Many Years: Alcohol Use: No Frequency: Quant:
--- NOTE | 2019-05-29 15:16 | HPC ---
[facility] [address] [place] [address] PAIN MANAGEMENT CONSULTATION Name: ISIDRA DOWNS Room #: REG [facility] Kaylah#: [id number] Admission: 05/28/19 Attend Phys: Shi Vu Discharge: Date of : 38 Report #: [id number] THIS REPORT FOR: //name// CC: Shi Simon DATE OF SERVICE: 05/28/2019 CHIEF COMPLAINT: Mid back pain, low back pain and lower extremity pain. HISTORY OF PRESENT ILLNESS: This is a very pleasant 78-year-old female who returns to the Pain Clinic today for refill of her medications that she has been taking for her ongoing low back pain. She is rating a pain score of 2/10 today when she sits. It does escalate to 10/10 when she is ambulating greater than 10 minutes. She reports her pain as a sharp pressure. She feels the medication as well as sitting and heat are very beneficial, though she feels that the hydrocodone that she had been on in the past was more effective in controlling her breakthrough pain than the oxycodone. She is wondering if she would be able to rotate back to that medication and continue her fentanyl patch as she has been currently taking them. The patient denies any problems with daytime sleepiness. She does take MiraLax on a daily basis to help prevent any constipation issues. She continues to take clonazepam on an as needed basis and tries to take that as sparingly as possible since the interaction with opioids and clonazepam, she is very careful she reports. ALLERGIES: ADHESIVES. CURRENT LIST OF MEDICATIONS: Oxycodone 5 mg t.i.d., fentanyl patch 25 mcg, clonazepam 1 mg p.r.n., gabapentin 300 mg t.i.d., MiraLax, Synthroid, Victoza, Crestor, vitamin D, Accupril, Paxil, Toprol and Lantus insulin. PQRS: 1. She has known arthritic changes in her lumbar spine, bilateral hips and knees. Denies any rheumatoid arthritis. Height is 5 feet 2 inches, weight is 141. BMI is 25. Vital signs 109/64, pulse is 76, respirations 16, oxygen sat is 98. 2. Pain score is 2/10. The patient denies dizziness. Uses a walker at all times. Has not fallen in the last 3 months. The patient is not on any blood thinners, but does take medicine for hypertension. Opioid therapy is greater than 6 weeks; therefore, an opioid signed contract is on the chart. Her risk assessment tool is low. Functional assessment is 59/70. 3. Recreational drug use, she denies. She is not a smoker and does not drink [address] [address] PAIN MANAGEMENT CONSULTATION Name: ISIDRA DOWNS [facility]: [facility] [id number] Admission: 05/28/19 Attend Phys: Shi Vu Discharge: Date of : 38 Report #: [id number] alcohol. According to the prescription monitoring system, the patient is filling appropriately for her medications. She is due to fill those today. She keeps these safeguarded at all times. PHYSICAL EXAMINATION: GENERAL: This is a well-developed, well-nourished, well-hydrated 78-year-old female who is alert and orientated, placing her pain score at 2/10 today and 10/10 with ambulation. HEENT: Normocephalic, atraumatic. Extraocular eye muscles are intact. Speech is fluent. Mucous membranes are moist. EXTREMITIES: No clubbing, no cyanosis, no edema. MUSCULOSKELETAL: The patient's gait is antalgic, using a roller walker at all times. She has tenderness to palpation through the paraspinal musculature of the thoracic and lumbar regions of her spinal area. Seated straight leg raising is negative. Lower extremity strength judged to be 4/5 in all major muscle groups in her lower extremities. ASSESSMENT: 1. Multiple vertebral compression fractures, status post vertebral augmentation with extravasation of glue into the lung. 2. Failed lumbar spine surgery. 3. Lumbosacral spondylosis with radiculopathy. 4. Facet arthroscopy of the lumbar spine. 5. Lumbar degeneration. 6. Opioid dependency. 7. Osteoporosis. 8. Chronic intractable pain. We reviewed the fact that opiate medications are being used to provide analgesia adequate to support activities of daily living, not attempting to achieve a specific pain score on the 0-10 Visual Analog Scale. The current opiate medications are providing sufficient analgesia to allow the patient to participate in activities of daily living. The patient is not exhibiting any aberrant behavior suggestive of drug diversion. The patient is not having any adverse reactions to medications. The patient is not suffering from daytime somnolence or mental acuity changes. The patient is managing opiate-induced constipation with appropriate fhrw-hwy-bnhqjpa agents and dietary considerations. The patient was counseled on concern for caution with operating a motor vehicle while using opiate medications. PLAN: 1. We discussed treatment options with the patient today. The patient is requesting rotation in her breakthrough pain medicine. I explained to the patient that we would gladly place her back on hydrocodone, but according to the [facility] [address] [place] [address] PAIN MANAGEMENT CONSULTATION Name: ISIDRA DOWNS Room #: [facility]#: [id number] Admission: 05/28/19 Attend Phys: Sih Vu Discharge: Date of : 38 Report #: [id number] CDC guidelines, we are trying to keep people at 90 morphine mEq or below. We would not be able to place her at 10 mg of hydrocodone, but we would offer her 7.5/[address] her oxycodone 5 mg. The patient is agreeable with this. She feels that hydrocodone works much better for her. Scripts sent electronically by Dr. Scot Gramajo today for her fentanyl patch 25 mcg, #10 for 2 months as well as hydrocodone 7.5/325, #90. This places her at her same morphine mEq of 82 per day. 2. We will refill clonazepam 1 mg, #30 with one additional refill. The patient does take this very sparingly. 3. The patient reports she continues to have some shortness of breath with deep exertion from her previous compression fracture repair and has seen a columnist in relation to this. 4. The patient is seen in collaboration today with Dr. Scot Garmajo. She will return in 2 months for medication management refills. <ELECTRONICALLY SIGNED> By: Shi Vu 05/29/19 1516 [id number] Shi Vu /nt
== END ==
LOC: PAIN 06:59
DX: M47.27 Other spondylosis with radiculopathy, lumbosacral region (principal); M51.16 Intervertebral disc disorders with radiculopathy, lumbar region; M12.88 Other specific arthropathies, not elsewhere classified, other specified site; F11.20 Opioid dependence, uncomplicated; M81.0 Age-related osteoporosis without current pathological fracture; G89.4 Chronic pain syndrome; Z79.899 Other long term (current) drug therapy; Z88.8 Allergy status to other drugs, medicaments and biological substances

== ENCOUNTER → 2019-07-23 | Outpatient (CLI) | payer OTHER ==
[~2019-07-23] VITALS: Ht 157.5 cm; Wt 65.8 kg
[~2019-07-23] MED LIST changes: +DURAGESIC1 EACH TRANSDERM
[2019-07-23 10:01] VITALS: BP 130/69
--- NOTE | 2019-07-23 10:19 | NUR ---
Pain Clinic Assessment: 1. 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 Height: 5 ft. 2 in. 157.5 cm. Weight: 145.0 lb. oz. 65.772 kg. Patient's BMI: 26.5 3. Vital Signs: BP: 130/69 Pulse: 77 Resp: 16 Temp: 02 Sat: 100 ECG Mon: 4. Pain Intensity: 2 sitting, 10 walking 5. Fall Risk: Dizziness: N Needs help standing or walking: Y Fallen in the last 3 months: N Fall risk comments: 0 6. Patient on Blood Thinner: None 7. History of Hypertension: Y 8. Opioid Therapy greater than 6 weeks: N Opiate Contract Signed: 01/20/16 9. Risk Assessment Tool Provided: 2-low 10. Functional Assessment Tool: / 11. Recreational Drug Use: Never Drug Type: Tobacco Use: Never Smoker Tobacco Type: Amount or Packs/day: How Many Years: Alcohol Use: No Frequency: Quant:
--- NOTE | 2019-07-24 12:40 | HPC ---
[facility] [address] [place] [address] PAIN MANAGEMENT CONSULTATION Name: ISIDRA DOWNS Room #: REG [facility] Kaylah#: [id number] Admission: 07/23/19 Attend Phys: Scot Gramajo DO Discharge: Date of : 38 Report #: [id number] THIS REPORT FOR: //name// CC: Scot Simon DATE OF SERVICE: 07/23/2019 CHIEF COMPLAINT: Mid back pain, low back pain and bilateral lower extremity pain with paresthesias. HISTORY OF PRESENT ILLNESS: As you know, the patient is a very pleasant 78-year-old female who returns today in followup visit reporting pain score of up to 10/10 with ambulation. As you are aware, the patient has undergone various treatments for her ongoing pain issues, ultimately undergoing spinal cord stimulator trial implantation with good efficacy. She went on to permanent implant, which is improving some of her lower back symptoms, but she continues to experience mid back pain status post 2-level fractures and subsequent kyphotic positioning. She chose not to undergo treatment for the compression fractures and was provided TLSO bracing system. Unfortunately, she is left with residual pain. She returns today in followup visit to discuss the possibility of making adjustments in medication management. She denies side effects to the medication at this time including sleepiness, disorientation, confusion, mental slowing or constipation that cannot be resolved with lqev-ndi-qafcotj medication. She denies new injury, trauma or changes in medical history since our last visit. ALLERGIES: ADHESIVE TAPE. CURRENT MEDICATIONS: Fentanyl 25 mcg q. 72 hours, clonazepam 1 mg at bedtime, gabapentin 300 mg t.i.d., MiraLax p.r.n., Synthroid 112 mcg per day, Victoza 1.8 mg subcutaneous per day, rosuvastatin 20 mg per day, hydrocodone 7.5/325 three times a day, metoprolol 25 mg once a day, Lantus 50 units of insulin per day, paroxetine 10 mg per day, Accupril 10 mg per day. SOCIAL HISTORY: The patient denies tobacco, alcohol or IV illicit drug use. She is retired years ago, unaccompanied today. She is utilizing a roller walker for ambulation. PQRS: The patient has known arthritic changes of the lumbar spine, bilateral hips and knees. No rheumatoid arthritis. Pain intensity today runs anywhere from 2-10/10 depending on activity. She is a fall risk, but has not had a fallen last 3 months. She is utilizing a roller walker for ambulation. She is not on blood thinners, but is treated for hypertension. She is on chronic opioids, has a low opioid addiction potential. Pain impact score 59/[address] [address] PAIN MANAGEMENT CONSULTATION Name: ISIDRA DOWNS Room #: REG [facility] Kaylah#: [id number] Admission: 07/23/19 Attend Phys: Scot Gramajo DO Discharge: Date of : 38 Report #: [id number] indicating severe near complete interference of daily activities secondary to pain. PHYSICAL EXAMINATION: VITAL SIGNS: Blood pressure 130/69, pulse 77, respiratory rate 16 and unlabored. The patient is 100% on room air. Height 5 feet 2 inches tall, weight 145 pounds, BMI calculated 26.5. GENERAL: Well-developed, well-nourished, well-hydrated 78-year-old female appearing stated age, pain is rated anywhere from 2-10/10 depending on activity. HEENT: Normocephalic, atraumatic. Pupils equal, round, reactive to light. EXTREMITIES: Show no clubbing, no cyanosis, and no edema. MUSCULOSKELETAL: The patient's gait remains antalgic, utilizing a roller walker for ambulation. She is in a forward flexed position. There is significant kyphosis noted in the thoracic spine. Seated straight leg raising is negative. Supine straight leg raising positive. Roman's test is negative. Modified Gaenslen's positive for axial low back pain. ASSESSMENT: 1. Failed lumbar spine surgery. 2. Lumbosacral spondylosis with radiculopathy. 3. Facet arthropathy of the lumbar spine. 4. Lumbar degeneration. 5. Progressing kyphosis of the thoracic spine. 6. Opioid dependency. 7. Chronic intractable pain. PLAN: 1. The patient returns today in followup visit where we had a very long discussion with the patient in regards to ongoing pain issues. It appears that despite any adjustments in medication management, her pain does not tend to improve. She has requested a possible adjustment one final time to determine if her symptoms will improve with an escalating dose. I have cautioned the patient about escalating opioid medications and their potential side effects. She is understanding of our concerns, but does wish to trial a slightly higher dose of medication. We have agreed to provide this today with the understanding that long-term treatment is not with opioid medications. We will be needing to seek another treatment option including adjustments in her spinal cord stimulator if necessary and possible surgical options if needed. The patient is agreeable. 2. The patient will be started on 37 mcg fentanyl, utilizing a 25 mcg patch and a 12 mcg patch concurrently. I have given the patient #10 of each of those patches releasing today and 4 weeks from today, 2 months' worth of medication. The patient was advised to watch for side effects with the use of medication. 3. We reviewed the fact that opiate medications are being used to provide analgesia adequate to support activities of daily living, not attempting to achieve a specific pain score on the 0-10 Visual Analog Scale. The current opiate medications are providing sufficient analgesia to allow the patient to [facility] [address] [place] [address] PAIN MANAGEMENT CONSULTATION Name: ISIDRA DOWNS Room #: REG [facility] Kaylah#: [id number] Admission: 07/23/19 Attend Phys: Scot Gramajo DO Discharge: Date of : 38 Report #: [id number] participate in activities of daily living. The patient is not exhibiting any aberrant behavior suggestive of drug diversion. The patient is not having any adverse reactions to medications. The patient is not suffering from daytime somnolence or mental acuity changes. The patient is managing opiate-induced constipation with appropriate nocr-ygp-rkbhgky agents and dietary considerations. The patient was counseled on concern for caution with operating a motor vehicle while using opiate medications. A physical exam was performed and the patient's functional status was evaluated. All patients with back pain were advised against the bed rest greater than 4 days and were advised to return to normal activities. Pain score assessment was noted and the treatment plan was reviewed with the patient. All current medications, both prescribed and OTC were reviewed and reconciled on the electronic medical record. Tobacco screening was accomplished and smoking cessation was advised when indicated. BMI was noted and diet/exercise modification was recommended for all patients following outside normal parameters. I reviewed with the patient today their responsibilities to safeguard prescription medications, reviewed their responsibility to utilize medications only as prescribed by the physician. They are to seek and receive pain medications only from 1 physician group ( [facility]). They are to use 1 pharmacy and keep the clinic informed if they change pharmacies. Their responsibilities include making followup visits in a timely fashion and to avoid abrupt discontinuation of medication usage. Their responsibilities further include bringing their medications (bottles from the pharmacy with residual pills) to the visit for possible confirmation of pill counts and the patient understands it is their responsibility to submit to random drug screens to ensure both that the medications prescribed are present, and that no other controlled substances are present. All prescriptions provided today were generated electronically. 4. The patient was provided prescription of hydrocodone 7.5/325 one tab p.o. q. 8 hours p.r.n. for pain. I have given the patient #90 tablets, releasing today and 4 weeks from today, 2 months' worth of medication. The patient was advised to take this medication only when pain is intolerable, not to rely on this medication prophylactically. 5. The patient was provided refill prescription of clonazepam 1 mg dose 1 tab p.o. at bedtime, #30 with 1 refill. The patient is advised to utilize this on an as needed basis, not consistently. 6. We will see the patient back in followup visit in 2 months to discuss the efficacy of this increase in medication. If we notes no increase in inefficacy [address] [address] PAIN MANAGEMENT CONSULTATION Name: ISIDRA DOWNS Room #: REG VASHTI Adrian#: [id number] Admission: 07/23/19 Attend Phys: Scot Gramajo DO Discharge: Date of : 38 Report #: [id number] and no change in her overall pain scores, we would recommend reducing back to the dosing prior to use the lowest most effective dose. <ELECTRONICALLY SIGNED> By: Scot Gramajo DO 07/24/19 [id number] Scot Gramajo DO /nt
== END ==
LOC: PAIN 06:54
DX: M47.27 Other spondylosis with radiculopathy, lumbosacral region (principal); M12.88 Other specific arthropathies, not elsewhere classified, other specified site; M51.16 Intervertebral disc disorders with radiculopathy, lumbar region; F11.20 Opioid dependence, uncomplicated; G89.4 Chronic pain syndrome

== ENCOUNTER → 2019-10-16 | Outpatient (CLI) | payer OTHER ==
[~2019-10-16] VITALS: Ht 157.5 cm; Wt 65.1 kg
--- NOTE | ~2019-10-16 | HPC ---
[facility] [place] [address] PAIN MANAGEMENT CONSULTATION Name: ISIDRA DOWNS Room #: REG VASHTI ButtBrendaMichaelBrenda#: [id number] Admission: 10/16/19 Attend Phys: Scot Gramajo DO Discharge: Date of : 38 Report #: [id number] THIS REPORT FOR: cc: Juani Mina,Scot Lerner DO ~ CC: Scot Mina DATE OF SERVICE: 10/16/2019 CHIEF COMPLAINT: Mid back pain, upper back pain, low back pain, bilateral lower extremity pain with paresthesias. HISTORY OF PRESENT ILLNESS: As you know, the patient is a very pleasant 79-year-old female, who returns today in followup visit for medication management. She feels medications are working for pain control, but are not controlling her symptoms as effectively as she wishes. She is placing her current pain score up to 2/10 while sitting, 10/10 while standing. As you are aware, the patient has had some surgeries in the lumbar spine, but unfortunately these have failed to provide any benefit for pain control. She is able to function on a daily basis from a mechanical standpoint, but her pain is intense to the point where she is utilizing the CDCs recommended highest level of morphine equivalents in any given day. Unfortunately, her symptoms are not amenable to this type of medication management as even increasing in the fentanyl has led to no significant pain improvement. She returns today in followup visit to maintain medication management at current levels. She states that with alterations in her daily activities, she can control symptoms to some degree. She returns for medication management. She is denying side effects of sleepiness, disorientation, confusion, mental slowing. ALLERGIES: ADHESIVE TAPES. CURRENT MEDICATIONS: Fentanyl 37 mcg q.72 hours, clonazepam 1 mg p.o. at bedtime, hydrocodone/acetaminophen 7.5/325 one tab every 3 hours p.r.n. for pain, gabapentin 300 mg t.i.d., MiraLax 17 grams once a day, levothyroxine 112 mcg per day, Victoza 0.6 mg/0.1 mL, rosuvastatin 20 mg per day, vitamin D 50,000 units per week, Accupril 10 mg once a day, paroxetine 10 mg per day, metoprolol 25 mg per day, Lantus 100 units subcutaneous b.i.d. SOCIAL HISTORY: The patient denies tobacco, alcohol, IV or illicit drug use. She is retired, retired years ago, unaccompanied today. PQRS: The patient has known arthritic changes of the lumbar spine, bilateral hips and knees. No rheumatoid arthritis. She is placing pain intensity at 08/[address] [address] PAIN MANAGEMENT CONSULTATION Name: ISIDRA DOWNS [facility] [id number] Admission: 10/16/19 Attend Phys: Scot Gramajo DO Discharge: Date of : 38 Report #: [id number] in seated position, 10/10 with standing. She is a fall risk and utilizing a roller walker for ambulation, but has not had a fall in last 3 months. She is not on blood thinners, but is treated for hypertension. She is on chronic opioids with a low opiate addiction potential. Pain impact score 59/70, severe interference of daily activities secondary to pain. PHYSICAL EXAMINATION: VITAL SIGNS: Blood pressure 98/62, pulse 87, respiratory rate 18 and unlabored. The patient is 100% on room air. Height 5 feet 2 inches tall, weight 143.6 pounds, BMI calculated 26.3. GENERAL: Well-developed, well-nourished, well-hydrated 79-year-old female appearing her stated age. She is in no acute distress, awake, alert and oriented x 3. Current pain score rated anywhere from 2 to 10/10 depending on activity. HEENT: Normocephalic, atraumatic. Pupils equal, round, reactive to light. EXTREMITIES: Show no clubbing, no cyanosis, and no significant edema. MUSCULOSKELETAL: The patient has palpatory tenderness over the paraspinal musculature of the upper thoracic, mid thoracic and lower thoracic areas. There are well-healed surgical scars of the lumbar spine. There is some palpatory tenderness noted over the paraspinal musculature of the lumbar spine. No spinous process tenderness. Seated straight leg raising negative. Supine straight leg raising negative. Roman's test is negative. Modified Gaenslen's positive for axial low back pain. ASSESSMENT: 1. Symptomatic lumbar radiculopathy. 2. Failed lumbar spine surgery. 3. Lumbosacral spondylosis with radiculopathy. 4. Facet arthropathy of the lumbar spine. 5. Lumbar degeneration. 6. Opioid dependency. 7. Chronic medication management with scheduled medications. 8. Osteoporosis. 9. Chronic intractable pain. PLAN: 1. The patient returns today in followup visit where we have discussed at length medication management with the patient. Unfortunately, increasing her medications at this juncture would not be recommended. We made increase in her medication at prior visits and yet we noticed no significant pain improvement. I am not confident that the pain she is experiencing is responsive to opioid medications to any great degree. She does report some efficacy with medication. We recommend she continue the therapy. She is currently taking fentanyl 37 mcg q.72 hours, which equates to approximately 88 to 90 morphine equivalents a day in conjunction with the use of hydrocodone 7.5/325 up to 3 times a day, equating to 22.5 mg equivalents of morphine well over CDC's recommended guidelines and [facility] [address] [place] [address] PAIN MANAGEMENT CONSULTATION Name: ISIDRA DOWNS Room #: REG VASHTI Adrian#: [id number] Admission: 10/16/19 Attend Phys: Scot Gramajo DO Discharge: Date of : 38 Report #: [id number] despite this elevated level of opioids, the patient continues to experience pain. We recommend no further adjustments in the medications based on opioids. We reviewed the fact that opiate medications are being used to provide analgesia adequate to support activities of daily living, not attempting to achieve a specific pain score on the 0-10 Visual Analog Scale. The current opiate medications are providing sufficient analgesia to allow the patient to participate in activities of daily living. The patient is not exhibiting any aberrant behavior suggestive of drug diversion. The patient is not having any adverse reactions to medications. The patient is not suffering from daytime somnolence or mental acuity changes. The patient is managing opiate-induced constipation with appropriate lgya-xvm-deumete agents and dietary considerations. The patient was counseled on concern for caution with operating a motor vehicle while using opiate medications. A physical exam was performed and the patient's functional status was evaluated. All patients with back pain were advised against the bed rest greater than 4 days and were advised to return to normal activities. Pain score assessment was noted and the treatment plan was reviewed with the patient. All current medications, both prescribed and OTC were reviewed and reconciled on the electronic medical record. Tobacco screening was accomplished and smoking cessation was advised when indicated. BMI was noted and diet/exercise modification was recommended for all patients following outside normal parameters. I reviewed with the patient today their responsibilities to safeguard prescription medications, reviewed their responsibility to utilize medications only as prescribed by the physician. They are to seek and receive pain medications only from 1 physician group ( [facility]). They are to use 1 pharmacy and keep the clinic informed if they change pharmacies. Their responsibilities include making followup visits in a timely fashion and to avoid abrupt discontinuation of medication usage. Their responsibilities further include bringing their medications (bottles from the pharmacy with residual pills) to the visit for possible confirmation of pill counts and the patient understands it is their responsibility to submit to random drug screens to ensure both that the medications prescribed are present, and that no other controlled substances are present. All prescriptions provided today were generated electronically. 2. The patient will be continued on her fentanyl 12 mcg and 25 mcg patch for a total of 37 mcg. She was given 10 patches of each with releases of today and 4 weeks from today, 2 months' worth of medication. 3. The patient was provided a refill prescription on her clonazepam 1 mg dose 1 tab p.o. at bedtime, #30 with 1 refill. I have advised the patient at this time that continuation of benzodiazepines with opioid medications are not recommended. If the patient is experiencing significant anxiety, she needs to [address] [address] PAIN MANAGEMENT CONSULTATION Name: ISIDRA DOWNS Room #: REG [facility] Kaylah#: [id number] Admission: 10/16/19 Attend Phys: Scot Gramajo DO Discharge: Date of : 38 Report #: [id number] discuss this with her PCP or possibly with her psychiatrist and find medication that do not have a potential respiratory depression effects with her current opioids. 4. The patient was provided prescription of hydrocodone 7.5/325 one tab p.o. q.8 hours p.r.n. for pain. I have given the patient #90 tablets with releases of today and 4 weeks from today, 2 months' worth of medication. 4. We will see the patient back in followup visit in 2 months. By: [id number] Scot Gramajo DO /nt
[2019-10-16 14:27] VITALS: BP 98/62
--- NOTE | 2019-10-16 14:41 | NUR ---
Pain Clinic Assessment: 1. 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 Height: 5 ft. 2 in. 157.5 cm. Weight: 143.6 lb. oz. 65.136 kg. Patient's BMI: 26.3 3. Vital Signs: BP: 98/62 Pulse: 87 Resp: 18 Temp: 02 Sat: 100 ECG Mon: 4. Pain Intensity: 2-SITTING 10-STANDING 5. Fall Risk: Dizziness: N Needs help standing or walking: Y Fallen in the last 3 months: N Fall risk comments: 0 6. Patient on Blood Thinner: None 7. History of Hypertension: Y 8. Opioid Therapy greater than 6 weeks: Y Opiate Contract Signed: 01/20/16 9. Risk Assessment Tool Provided: 2-low 10. Functional Assessment Tool: / 11. Recreational Drug Use: Never Drug Type: Tobacco Use: Never Smoker Tobacco Type: Amount or Packs/day: How Many Years: Alcohol Use: No Frequency: Quant:
== END ==
LOC: PAIN 07:39
DX: M47.26 Other spondylosis with radiculopathy, lumbar region (principal); M79.661 Pain in right lower leg; M79.662 Pain in left lower leg; G89.4 Chronic pain syndrome; Z79.891 Long term (current) use of opiate analgesic; Z79.899 Other long term (current) drug therapy

== ENCOUNTER → 2020-02-18 | Outpatient (CLI) | payer OTHER ==
[~2020-02-18] VITALS: Ht 157.5 cm; Wt 62.2 kg
[~2020-02-18] MED LIST changes: +CYMBALTA30 MG PO
[2020-02-18 10:43] VITALS: BP 121/53
--- NOTE | 2020-02-18 11:05 | NUR ---
Pain Clinic Assessment: 1. 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 Height: 5 ft. 2 in. 157.5 cm. Weight: 137.2 lb. oz. 62.233 kg. Patient's BMI: 25.1 3. Vital Signs: BP: 121/53 Pulse: 77 Resp: 16 Temp: 02 Sat: 97 ECG Mon: 4. Pain Intensity: 2-SITTING 10-STANDING 5. Fall Risk: Dizziness: N Needs help standing or walking: Y Fallen in the last 3 months: N Fall risk comments: 0 6. Patient on Blood Thinner: None 7. History of Hypertension: Y 8. Opioid Therapy greater than 6 weeks: Y Opiate Contract Signed: 01/20/16 9. Risk Assessment Tool Provided: 2-low 10. Functional Assessment Tool: / 11. Recreational Drug Use: Never Drug Type: Tobacco Use: Never Smoker Tobacco Type: Amount or Packs/day: How Many Years: Alcohol Use: No Frequency: Quant:
--- NOTE | 2020-02-19 12:50 | HPC ---
[facility] [address] [place] [address] PAIN MANAGEMENT CONSULTATION Name: ISIDRA DOWNS [facility] [id number] Admission: 02/18/20 Attend Phys: Shi Vu Discharge: Date of : 38 Report #: [id number] THIS REPORT FOR: cc: Sergio Patricia MD, Michael S. MD Hocker,Shi BUTLER ~ CC: Scot Gramajo DO DATE OF SERVICE: 02/18/2020 CHIEF COMPLAINT: Mid back pain, upper back pain, low back pain, bilateral lower extremity pain and paresthesias. HISTORY OF PRESENT ILLNESS: As you know, this is an 79-year-old female who returns today for medication refill. She feels that the medications are beneficial most of the time, though at times she does report increased pain, especially when standing for any prolonged period of time. Her pain score today is 2-10. She states that it is a sharp, tender, pressure feeling. She feels that using heat or ice as well as sitting have been beneficial. Today, though she is only wearing a 25 mcg patch. She changed her fentanyl patches last night and reports that she did not have a 12 mcg patch to put on. She states that, that might be a reason why she has slightly increased pain. The patient also reports that she is very depressed. She has not been able to see her family during this COVID outbreak. She feels that most of her friends are passing away due to various health reasons and she feels like giving up. She is taking one antidepressant though very low dose. She has not seen her primary care doctor in regards to her worsening depression. ALLERGIES: ADHESIVE TAPE. CURRENT LIST OF MEDICATIONS: Clonazepam 1 mg, hydrocodone 7.5/325 p.r.n., fentanyl 25 mcg patch every 72 hours, fentanyl 12 mcg patch, gabapentin, MiraLax, levothyroxine, Victoza, Crestor, vitamin D, quinapril, paroxetine, metoprolol and insulin. PATIENT'S PQRS: 1. She has osteoarthritis in her upper extremities. Denies any rheumatoid arthritis. 2. Height is 5 feet 2 inches, weight is 137, BMI is 25. 3. Vital signs 121/53, pulse is 77, respirations 16, oxygen sat is 97%. Pain score is 2-10 depending on activity. 4. Fall risk. Denies dizziness. Does need help with ambulation, uses a walker at all times. Has not fallen in the last 3 months. The patient is not on any blood thinners, but does take medicine for hypertension. 5. Her opioid therapy is greater than 6 weeks; therefore, an opioid signed [address] [address] PAIN MANAGEMENT CONSULTATION Name: ISIDRA DOWNS Room #: REG CL Jane.#: [id number] Admission: 02/18/20 Attend Phys: Shi Vu Discharge: Date of : 38 Report #: [id number] contract is on the chart. Risk assessment tool is low. Functional assessment is 59/70. 6. Recreational drug use, she denies. She is not a smoker and does not drink alcohol. According to the prescription monitoring system, the patient is due to fill her medications today. We have last seen her in September, so she should be out of these medications, but she reports using her last patches. PHYSICAL EXAMINATION: GENERAL: This is alert and orientated, well-developed, well-nourished, slightly depressed 79-year-old female, placing her pain score from 2-10 depending on activity. HEENT: Normocephalic, atraumatic. Pupils equal, round and reactive to light. She is wearing a mask. EXTREMITIES: No clubbing, no cyanosis, no edema. MUSCULOSKELETAL: She has tenderness over the paraspinal musculature of her lumbar spine as well as the thoracic spine. Straight leg raising is negative. Modified Gaenslen is positive for axial low back pain. Lower extremity strength is equal and symmetrical, though slightly debilitated. ASSESSMENT: 1. Symptomatic lumbar radiculopathy. 2. Failed lumbar spine surgery. 3. Lumbosacral spondylosis with radiculopathy. 4. Facet arthroscopy of the lumbar spine. 5. Lumbar degeneration. 6. Chronic medication with scheduled medications. 7. Depression. 8. Osteoporosis. We reviewed the fact that opiate medications are being used to provide analgesia adequate to support activities of daily living, not attempting to achieve a specific pain score on the 0-10 Visual Analog Scale. The current opiate medications are providing sufficient analgesia to allow the patient to participate in activities of daily living. The patient is not exhibiting any aberrant behavior suggestive of drug diversion. The patient is not having any adverse reactions to medications. The patient is not suffering from daytime somnolence or mental acuity changes. The patient is managing opiate-induced constipation with appropriate [id number] agents and dietary considerations. The patient was counseled on concern for caution with operating a motor vehicle while using opiate medications. A physical exam was performed and the patient's functional status was evaluated. All patients with back pain were advised against the bed rest greater than 4 days and were advised to return to normal activities. Pain score assessment was [address] [address] PAIN MANAGEMENT CONSULTATION Name: ISIDRA DOWNS Room #: REG CLI Jane#: [id number] Admission: 02/18/20 Attend Phys: Shi Vu Discharge: Date of : 38 Report #: [id number] noted and the treatment plan was reviewed with the patient. All current medications, both prescribed and OTC were reviewed and reconciled on the electronic medical record. Tobacco screening was accomplished and smoking cessation was advised when indicated. BMI was noted and diet/exercise modification was recommended for all patients following outside normal parameters. I reviewed with the patient today their responsibilities to safeguard prescription medications, reviewed their responsibility to utilize medications only as prescribed by the physician. They are to seek and receive pain medications only from 1 physician group ( [facility]). They are to use 1 pharmacy and keep the clinic informed if they change pharmacies. Their responsibilities include making followup visits in a timely fashion and to avoid abrupt discontinuation of medication usage. Their responsibilities further include bringing their medications (bottles from the pharmacy with residual pills) to the visit for possible confirmation of pill counts and the patient understands it is their responsibility to submit to random drug screens to ensure both that the medications prescribed are present, and that no other controlled substances are present. All prescriptions provided today were generated electronically. PLAN: 1. We discussed treatment options with the patient today. The patient feels that the medication that she uses to help treat her pain is beneficial, though noticing that she is having more pain at certain times throughout the day. She is not wearing her 12 mcg patch today. She states she is out, she thinks one of them may have fallen off, since they are so small, they are difficult sometimes for her to apply. I encouraged her to ask the pharmacy for the largest patch that they have to see if this helps her with placement of her patches every 3 days. We will include that on this scripts as well. Dr. Scot Gramajo will send a 25 mcg and a 12 mcg patch every 72 hours, quantity 10 for today and 4-week release to her pharmacy. 2. We will continue her on her hydrocodone. She takes these several times throughout the day 7., these will also be sent electronically by Dr. Scot Gramajo. 3. We discussed her increasing depression issues. She is on the low dose Paxil 10 mg from her primary care doctor. I think she may benefit from Cymbalta, which should help with her pain generators as well as her depression. I encouraged her to try 30 mg once a day for 2 weeks and then she may increase it to 2 tablets a day, but instructed to call if she does increase to 60 mg tablets. We will give her a trial of this medication of 60 pills. She is to stop Paxil. 4. I encouraged her to try and see her family members from a distance wearing her mask if she is worried about COVID since she does have diabetes and heart issues. The patient states that she normally stays at home and her does all of the errands. Again, I encouraged her to get outside if she is able on [address] [address] PAIN MANAGEMENT CONSULTATION Name: ISIDRA DOWNS Room #: REG [facility] Kaylah#: [id number] Admission: 02/18/20 Attend Phys: Shi Vu Discharge: Date of : 38 Report #: [id number] nice days and see if this will help some of her depression as well. The patient will return in 2 months. The patient is seen today in collaboration with Dr. Scot Gramajo. <ELECTRONICALLY SIGNED> By: Shi Vu 02/19/20 1250 1323 1346 Shi Vu /nt
== END ==
LOC: PAIN 06:44
PROVIDERS: ATTEND Clinical Nurse Specialist Adult Health
DX: M47.26 Other spondylosis with radiculopathy, lumbar region (principal); M51.16 Intervertebral disc disorders with radiculopathy, lumbar region; M81.0 Age-related osteoporosis without current pathological fracture; F32.9 Major depressive disorder, single episode, unspecified

== ENCOUNTER → 2020-02-26 | Outpatient (CLI) | payer OTHER ==
[~2020-02-26] VITALS: Ht 157.5 cm; Wt 62.2 kg
[2020-02-26 12:37] VITALS: BP 125/90
--- NOTE | 2020-02-26 12:53 | NUR ---
Pain Clinic Assessment: 1. 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 Height: 5 ft. 2 in. 157.5 cm. Weight: 137.2 lb. oz. 62.233 kg. Patient's BMI: 25.1 3. Vital Signs: BP: 125/90 Pulse: 101 Resp: 16 Temp: 02 Sat: 100 ECG Mon: 4. Pain Intensity: 9 5. Fall Risk: Dizziness: N Needs help standing or walking: Y Fallen in the last 3 months: N Fall risk comments: 0 6. Patient on Blood Thinner: None 7. History of Hypertension: Y 8. Opioid Therapy greater than 6 weeks: Y Opiate Contract Signed: 01/20/16 9. Risk Assessment Tool Provided: MODERATE RISK 11/30 10. Functional Assessment Tool: 11. Recreational Drug Use: Never Drug Type: Tobacco Use: Never Smoker Tobacco Type: Amount or Packs/day: How Many Years: Alcohol Use: No Frequency: Quant:
--- NOTE | 2020-03-03 12:53 | HPC ---
[facility] [address] [place] [address] PAIN MANAGEMENT CONSULTATION Name: ISIDRA DOWNS [facility] [id number] Admission: 02/26/20 Attend Phys: Scot Gramajo DO Discharge: Date of : 38 Report #: [id number] THIS REPORT FOR: cc: Sergio Patricia MD, Michael S. MD Johnson, James E. DO ~ DATE OF SERVICE: 02/26/2020 REFERRING PHYSICIAN: Juani Mina MD CHIEF COMPLAINT: Mid back pain, upper back pain, low back pain, bilateral lower extremity pain and paresthesias. HISTORY OF PRESENT ILLNESS: As you know, the patient is a very pleasant 79-year-old female who returns today in followup visit to discuss ongoing pain issues, for which she places pain score at 9/10. Pain begins in low back, radiates down the legs bilaterally. She states that she has begun to lose function of the lower extremities. She states her pain is twisting and stabbing as well as numbness and tingling. Exacerbated with standing, walking, sitting or any activities. She places current pain score at 9/10. Medications and using an zvri-diw-sarqoqu medication formulation tends to improve pain. She has returned today in followup visit to discuss treatment options. ALLERGIES: CARBAMAZEPINE and ADHESIVE TAPE. CURRENT MEDICATIONS: Hydrocodone/acetaminophen 7.5/325 three times a day p.r.n. pain, fentanyl 25 mcg q. 72 hours, clonazepam 1 mg 3 times a day, duloxetine 30 mg once a day, gabapentin 300 mg 3 tabs p.o. at bedtime, MiraLax 17 grams per day, levothyroxine 112 mcg per day, Victoza 1.8 mg subcutaneous per day, rosuvastatin 20 mg per day, vitamin D 50,000 units per day, quinapril 10 mg per day, Paxil 10 mg per day, metoprolol 25 mg per day, Lantus 100 units subcutaneous twice a day. SOCIAL HISTORY: The patient denies tobacco, alcohol, IV or illicit drug use. She is retired, retired years ago, accompanied by her present in room today. IMAGING: No new imaging available. PQRS: The patient has known arthritic changes of the bilateral shoulders, bilateral hands, lumbar spine, bilateral hips and knees. No rheumatoid arthritis. She is placing pain intensity at 9/10. She is at a fall risk, but has not had a fall in the last 3 months. She utilizes a roller walker for ambulation. She is not on blood thinners, but is treated for hypertension. She is on chronic opioids and has a moderate risk of opioid addiction based on our [address] [address] PAIN MANAGEMENT CONSULTATION Name: ISIDRA DOWNS Room #: REG VASHTI Adrian#: [id number] Admission: 02/26/20 Attend Phys: Scot Gramajo DO Discharge: Date of : 38 Report #: [id number] assessment tool. Pain impact is 67 of 70 indicating near complete interference of daily activities secondary to pain. PHYSICAL EXAMINATION: GENERAL: Well-developed, well-nourished, well-hydrated 79-year-old frail appearing female, appearing stated age. Pain is rated today at 9/10. HEENT: Normocephalic, atraumatic. Pupils equal, round and reactive. Extraocular muscles are intact. Speech is fluent. EXTREMITIES: Show no clubbing, no cyanosis, and no edema. MUSCULOSKELETAL: Lower extremity strength is weakened bilaterally. There is significant deconditioning. There is equal and symmetrical muscle bulk and tone when comparing the lower extremities. Seated straight leg raising negative. Supine straight leg raising negative. Roman's test is negative. Modified Gaenslen's positive for axial low back pain. Ankle clonus negative. Babinski is negative. Gait antalgic. ASSESSMENT: 1. Symptomatic lumbar radiculopathy. 2. Failed lumbar spine surgery. 3. Lumbosacral spondylosis with radiculopathy. 4. Facet arthropathy of the lumbar spine. 5. Lumbar degeneration. 6. Opioid dependency. 7. Osteoporosis. 8. Complicated medication management. 9. Chronic intractable pain. PLAN: 1. The patient returns today in followup visit where we have discussed at length the options for treatment that we have available for her ongoing pain. Unfortunately, we are running low of treatment options. She is currently utilizing fentanyl at 25 mcg every 72 hours for a total of 100 morphine equivalents in and of itself. This in conjunction with hydrocodone places are well above the recommended CDC guidelines of no greater than 90 mg and even with this escalated dose of medication, she is not seeing much in the way of improvement in symptoms. This is somewhat concerning as I do feel that escalating doses at this point would be against the CDC's recommendations and would not provide much in the way of analgesic benefit. We recommend other options for treatment. 2. We will send the patient for CT examination of the lumbar spine. She cannot undergo an MRI due to a spinal cord stimulator that was implanted for pain control in an attempt to plicate symptoms. The patient will undergo CT examination as quickly as possible. Once this is completed, we will review the findings. I do feel that surgical options may have to be entertained. 3. No medication changes made at today's visit. The patient will continue the fentanyl at 37 mcg for 72 hours via the fentanyl patch and continue the [facility] [address] [place] [address] PAIN MANAGEMENT CONSULTATION Name: ISIDRA DOWNS Room #: REG VASHTI Adrian#: [id number] Admission: 02/26/20 Attend Phys: Scot Gramajo DO Discharge: Date of : 38 Report #: [id number] hydrocodone on a p.r.n. basis. The patient and I did discuss that further changes in medication management will not be an option given the elevated level of opioid medication she is currently on. We have reviewed this with the patient today. Escalating doses of medications are beyond CDC's recommended guidelines of no more than 90 morphine equivalents a day. Further escalation would not be warranted. 4. The patient will contact the device business representative for her spinal cord stimulator and have that adjusted again to determine if we may be able to buy some increase in efficacy. 5. We will see the patient back in followup visit once she has completed her CT examination. We will review those findings at that visit. <ELECTRONICALLY SIGNED> By: Scot Gramajo DO 03/03/20 1253 0824 0840 Scot Gramajo DO /nt
== END ==
LOC: PAIN 07:00
PROVIDERS: ATTEND Anesthesiology Pain Medicine
DX: M47.27 Other spondylosis with radiculopathy, lumbosacral region (principal); M79.604 Pain in right leg; M79.605 Pain in left leg; R20.2 Paresthesia of skin; F11.20 Opioid dependence, uncomplicated; M81.0 Age-related osteoporosis without current pathological fracture; G89.29 Other chronic pain; Z98.1 Arthrodesis status; Z79.899 Other long term (current) drug therapy

== ENCOUNTER → 2020-03-03 | Outpatient (CLI) | payer OTHER | LOC: CAT 08:30 | PROVIDERS: ATTEND Anesthesiology Pain Medicine | DX: M51.16 Intervertebral disc disorders with radiculopathy, lumbar region (principal) ==

== ENCOUNTER → 2020-06-03 | Outpatient (CLI) | payer OTHER ==
[~2020-06-03] VITALS: Ht 157.5 cm; Wt 62.0 kg
[~2020-06-03] MED LIST changes: +CBD OIL
[2020-06-03 13:03] VITALS: BP 150/67
--- NOTE | 2020-06-03 13:18 | NUR ---
Pain Clinic Assessment: 1. 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 Height: 5 ft. 2 in. 157.5 cm. Weight: 136.6 lb. oz. 61.961 kg. Patient's BMI: 25.0 3. Vital Signs: BP: 150/67 Pulse: 78 Resp: 14 Temp: 02 Sat: 100 ECG Mon: 4. Pain Intensity: 5 5. Fall Risk: Dizziness: Y Needs help standing or walking: Y Fallen in the last 3 months: Y Fall risk comments: 0 6. Patient on Blood Thinner: None 7. History of Hypertension: Y 8. Opioid Therapy greater than 6 weeks: Y Opiate Contract Signed: 01/20/16 9. Risk Assessment Tool Provided: MODERATE RISK 11/30 10. Functional Assessment Tool: 11. Recreational Drug Use: Never Drug Type: Tobacco Use: Never Smoker Tobacco Type: Amount or Packs/day: How Many Years: Alcohol Use: No Frequency: Quant:
--- NOTE | 2020-06-04 08:17 | HPC ---
[facility] [email or web address] [address] PAIN MANAGEMENT CONSULTATION Name: ISIDRA DOWNS [id number] Admission: 06/03/20 Attend Phys: Shi Vu Discharge: Date of : 38 Report #: [id number] THIS REPORT FOR: cc: Sergio Patricia MD, Michael S. MD Hocker,Shi Burgess DATE OF SERVICE: 06/03/2020 CHIEF COMPLAINT: Mid back pain, low back pain, bilateral lower extremity pain and paresthesias. HISTORY OF PRESENT ILLNESS: As you know, this is a very pleasant 79-year-old female who returns to the pain clinic today to discuss her pain medications. The patient reports weaning herself off her fentanyl patches since our last visit with her in February. She felt that they were not as beneficial as she would like. In place of her fentanyl patches she has started CBD oil, utilizing this twice a day. She has been continuing her hydrocodone as well as her clonazepam. Today, she is reporting a pain score of 5/10 most of her pain is located again in her mid to lower back. It is worse with prolonged standing, walking and sitting. If she is very active in the kitchen her pain is increased causing a stabbing sensation. She believes that the CBD oil and her hydrocodone have been effective in controlling her pain. The patient denies any problems with constipation or daytime somnolence as a result of that medication. The patient does report she recently stopped Cymbalta as well. Dr. Gramajo had prescribed that medication for her to see if that would help with some of her neuropathy. The patient reports it caused significant dizziness. She does have a history of falling and she was worried that it would increase her falls. ALLERGIES: CARBAMAZEPINE AND ADHESIVE TAPE. CURRENT LIST OF MEDICATIONS: Hydrocodone 7.5/325, clonazepam, gabapentin, MiraLax, Synthroid, Victoza, Crestor, vitamin D, quinapril, Paxil, Toprol and Lantus. PQRS: 1. She has history of osteoarthritis in her upper extremities. Denies any rheumatoid arthritis. 2. Height is 5 feet 2 inches, weight is 136, BMI is 25. 3. Vital signs; blood pressure 150/67, pulse is 78, respirations 14, oxygen sat is 100. 4. Pain score is 5/10. 5. Fall risk, complains of dizziness. Does need assistance with a walker at all times and has fallen in the last 3 months, but did not seek medical attention. 6. The patient is not on any blood thinners. She does take medicine for [address] [address] PAIN MANAGEMENT CONSULTATION Name: ISIDRA DOWNS Room #: REG [facility] Kaylah#: [id number] Admission: 06/03/20 Attend Phys: Shi Vu Discharge: Date of : 38 Report #: [id number] hypertension. 7. Opioid therapy is greater than 6 weeks; therefore, an opioid signed contract is on the chart. Risk assessment is moderate. Functional assessment 67/70. 8. Recreational drug use, she denies. She is not a smoker and does not drink alcohol. According to the prescription monitoring system, she is filling appropriately in a timely fashion for her medications. She has not filled any fentanyl prescription since January when she has weaned herself off. Her morphine milliequivalent is 22 MME per day. PHYSICAL EXAMINATION: GENERAL: This is alert and orientated, well-developed, well-nourished 79-year-old female who is rating her pain score at 5/10 today. HEENT: Normocephalic, atraumatic. Extraocular eye muscles are intact. She is wearing a mask and her speech is fluent. EXTREMITIES: No clubbing, no cyanosis, no edema. MUSCULOSKELETAL: Her strength bilaterally in her lower extremity is deconditioned. Seated straight leg raising is negative. Modified ganglion is positive for axial low back pain. Gait is antalgic, utilizing a walker. ASSESSMENT: 1. Symptomatic lumbar radiculopathy. 2. Failed lumbar spine surgery. 3. Lumbar spondylosis with radiculopathy. 4. Facet arthroscopy of the lumbar spine. 5. Opioid dependency. 6. Osteoporosis. 7. Chronic intractable pain. 8. Opioid medication management utilizing scheduled medications. IMAGING: CT lumbar spine without contrast, no acute findings, mild degenerative disk disease and facet arthroscopy throughout the lumbar spine with a neurostimulator intact at T12-L1 and intact hardware. PLAN: 1. The patient returns today reporting she has weaned herself off her fentanyl patches and started CBD oil. She believes this is more beneficial and her pain is decreased taking CBD oil twice a day. I encouraged the patient to continue this as long as it has been beneficial for her. She does continue p.r.n. hydrocodone throughout the day, though at times she may have intense lower extremity pain. I have asked Dr. Scot Gramajo for able to increase her hydrocodone use 3-4 times a day, enabling her 10 extra tablets a month on her more painful afternoons of leg discomfort. Scripts will be sent today for hydrocodone 7.5, #100 for today and 4-week supply. 2. The patient is complaining of increasing lower extremity cramping, [address] [address] PAIN MANAGEMENT CONSULTATION Name: ISIDRA DOWNS Room #: REG [facility]#: [id number] Admission: 06/03/20 Attend Phys: Shi Vu Discharge: Date of : 38 Report #: [id number] especially later in the day. We did discuss tonic water that the patient may buy it [id number]. Quinine tablets are beneficial as well, but are quite expensive. The patient states she will have her spouse buy some tonic water for her to try. I also encouraged her to try her CBD oil 3 times a day to see if this is beneficial. 3. Scripts sent today in collaboration with Dr. Scot Gramajo. The patient will return in 2 months. <ELECTRONICALLY SIGNED> By: Shi Vu 06/04/20 0817 1412 1948 Shi uV /saroj
== END ==
LOC: PAIN 06:52
PROVIDERS: ATTEND Clinical Nurse Specialist Adult Health
DX: M47.26 Other spondylosis with radiculopathy, lumbar region (principal); M19.90 Unspecified osteoarthritis, unspecified site; G89.4 Chronic pain syndrome; Z79.891 Long term (current) use of opiate analgesic

== ENCOUNTER → 2020-09-08 | Outpatient (CLI) | payer OTHER ==
[~2020-09-08] VITALS: Ht 157.5 cm; Wt 63.3 kg
[2020-09-08 12:41] VITALS: BP 115/71
--- NOTE | 2020-09-08 12:52 | NUR ---
Pain Clinic Assessment: 1. History of Osteoarthritis: Left Upper Extremity Right Upper Extremity History of Rheumatoid Arthritis: DENIES 2. Height: 5 ft. 2 in. 157.5 cm. Weight: 139.6 lb. oz. 63.322 kg. Patient's BMI: 25.5 3. Vital Signs: BP: 115/71 Pulse: 88 Resp: 16 Temp: 02 Sat: 100 ECG Mon: 4. Pain Intensity: 5 5. Fall Risk: Dizziness: N Needs help standing or walking: Y Fallen in the last 3 months: N Fall risk comments: 0 6. Patient on Blood Thinner: None 7. History of Hypertension: Y 8. Opioid Therapy greater than 6 weeks: Y Opiate Contract Signed: 01/20/16 9. Risk Assessment Tool Provided: 2 LOW 10. Functional Assessment Tool: 11. Recreational Drug Use: Never Drug Type: Tobacco Use: Never Smoker Tobacco Type: Amount or Packs/day: How Many Years: Alcohol Use: No Frequency: Quant:
--- NOTE | 2020-09-09 07:51 | HPC ---
[facility] [place] [address] PAIN MANAGEMENT CONSULTATION Name: ISIDRA DOWNS [facility]: [facility] [id number] Admission: 09/08/20 Attend Phys: Shi Vu Discharge: Date of : 36 Report #: [id number] THIS REPORT FOR: cc: Sergio Patricia MD, Michael S. MD Hocker,Shi BUTLER ~ DATE OF SERVICE: 09/08/2020 CHIEF COMPLAINT: Mid back pain, low back pain, bilateral lower extremity pain and paresthesias. HISTORY OF PRESENT ILLNESS: This is a very pleasant 79-year-old female who returns to the pain clinic today for renewal of her medications. Today, she is reporting her pain is a 5/10, though on some days it is quite a bit higher per her report. The patient was last seen in May and was given 2 months of medication. It has now been 3 months since her last visit and she has been able to make her medications last. Her medications have lasted, though she has been in significant pain per her report. Her pain is worse with standing, walking and working in the kitchen. If she is sitting down after she has taken her medications, then her pain is much more relieved as well as utilizing her CBD oil. The patient denies any constipation issues. She does take MiraLax on a daily basis. The patient reports taking a half-to-one tablet of clonazepam at bedtime and this affords her significant relief and able to sleep at night. The patient does report having her first COVID vaccine and is scheduled at the end of the month for her second one. ALLERGIES: CARBAMAZEPINE AND ADHESIVE TAPE. CURRENT MEDICATIONS: CBD oil, hydrocodone 7.5/325 p.r.n., gabapentin 300 mg, MiraLax, levothyroxine, Victoza, Crestor, vitamin D, Accupril, Paxil, Toprol, Lantus, clonazepam. PATIENT'S PQRS: 1. The patient has arthritic changes in her upper and lower extremity as well as her spine. Denies any rheumatoid arthritis. 2. Height is 5 feet 2 inches, weight is 139, BMI is 25. 3. Vital signs 115/71, pulse is 88, respirations 16, oxygen sat is 100%. Pain score is 5/10. 4. Denies dizziness. Does use assistance of a walker for ambulation, has not fallen in the last 3 months. 5. The patient is not on any blood thinners, but does take medicine for hypertension. 6. Opioid therapy is greater than 6 weeks; therefore, an opioid signed contract is on the chart. Risk assessment is low. Functional assessment 60/70. 7. Recreational drug use, she denies. She is not a smoker [place] [address] PAIN MANAGEMENT CONSULTATION Name: ISIDRA DOWNS Room #: REG CL Kaylah#: [id number] Admission: 09/08/20 Attend Phys: Shi Vu Discharge: Date of : 38 Report #: [id number] alcohol. According to the prescription monitoring system, the patient is filling appropriately and in fact has filled greater than 2 months ago. Her morphine milliequivalent is less than 30 MMEs per day. PHYSICAL EXAMINATION: GENERAL: This is alert and orientated, well-developed, well-nourished 79-year-old female who appears her stated age, rating her current pain score at 5/10. HEENT: Normocephalic, atraumatic. Extraocular eye muscles are intact. She is wearing a mask. She is a good historian and her speech is fluent. EXTREMITIES: No clubbing, no cyanosis, no edema. MUSCULOSKELETAL: Straight leg raising is negative. Modified ganglion is positive for axial low back pain. She has an antalgic gait for which she utilizes a walker. Strength in her lower legs is diminished. Upper extremity strength is symmetrical at 5/5. ASSESSMENT: 1. Symptomatic lumbar radiculopathy. 2. Failed lumbar spine surgery. 3. Lumbar spondylosis with radiculopathy. 4. Facet arthroscopy of the lumbar spine. 5. Opioid dependency. 6. Osteoporosis. 7. Chronic intractable pain. 8. Complicated medical management utilizing scheduled opioid medications. PLAN: 1. We discussed treatment options with the patient today. The patient states for the last few months her pain has increased at times. While working at her sink she comes to tears and her has had to takeover. I explained that she is allowed 3-4 tablets of her hydrocodone a day. The patient filled her last prescription in June and has just run out of her opioids; therefore, she has been averaging 2 tablets a day. I encouraged her to fill every month. We are allowing her 3-4 tablets. Hopefully, this will aid in her pain relief. Scripts will be sent electronically for 2 months of her medication, hydrocodone 7.5/325, #100. I encouraged the patient to fill in a timely fashion and follow up in 2 months. 2. We will continue her clonazepam. The patient takes a half-to-one tablet at bedtime. This does help with her anxiety and affords her sleep. 3. We did discuss the COVID vaccine that she will have at the end of the month. Encouraging her to utilize ice and Tylenol if she has discomfort. The patient reported her arm was significantly sore after her first vaccine. Time spent with the patient in consultation, reviewing pertinent imaging, [facility] [address] [place] [address] PAIN MANAGEMENT CONSULTATION Name: ISIDRA DOWNS Room #: REG VASHTI Adrian#: [id number] Admission: 09/08/20 Attend Phys: Shi Vu Discharge: Date of : 38 Report #: [id number] clinical notes, physician reports, performing physical exam in correlation of findings with medical documentation to determine treatments 17 minutes. Time spent in preparation for appointment, reviewing prescription monitoring system, reviewing previous records and proposed treatment options and reviewing current medications 5 minutes. Time spent preparing and sending electronic prescriptions with collaborating physician, Dr. Scot Gramajo and documentation of visit and plan of treatment 8 minutes. Total time spent 30 minutes. <ELECTRONICALLY SIGNED> By: Shi Vu 09/09/20 0751 [id number] Shi Vu /nt
== END ==
LOC: PAIN 06:59
PROVIDERS: ATTEND Clinical Nurse Specialist Adult Health
DX: M47.26 Other spondylosis with radiculopathy, lumbar region (principal); M96.1 Postlaminectomy syndrome, not elsewhere classified; F11.20 Opioid dependence, uncomplicated; M79.604 Pain in right leg; M79.605 Pain in left leg; R20.2 Paresthesia of skin; M81.0 Age-related osteoporosis without current pathological fracture; G89.29 Other chronic pain; Z88.8 Allergy status to other drugs, medicaments and biological substances; Z79.899 Other long term (current) drug therapy

== ENCOUNTER 2020-11-02 01:59 | Inpatient (IN) | payer OTHER ==
[~2020-11-02] VITALS: Ht 157.5 cm; Wt 62.6 kg
[2020-11-02 02:10] VITALS: BP 147/70
[2020-11-02] MEDS ORDERED: MELOXICAM7.5 MG PO (02:41)
[2020-11-02] MEDS ORDERED: LIPITOR 20 MG T20 M1 PO (02:43)
[2020-11-02 04:15] LABS: BASOPHILS 0.4 % (0.0-2.0); EOSINOPHILS 2.1 % (0.0-3.0); HEMATOCRIT 34.3 % (37.0-47.0); HEMOGLOBIN 11.7 gm/dL (12.0-15.0); LYMPHOCYTES 27.7 % (24.0-44.0); MCH 31.2 pg (26.0-34.0); MCHC 34.2 g/dL (28.0-37.0); MCV 91.2 fL (80.0-100.0); MONOCYTES 5.8 % (1.0-8.0); PLATELET COUNT 187 thou/uL (150-400); RBC 3.76 mil/uL (4.20-5.00); RDW 13.3 % (10.5-14.5); WBC 9.4 thou/uL (4.0-11.0)
[2020-11-02 04:20] LABS: CREATININE 1.4 mg/dL (0.6-1.0); POTASSIUM 4.1 mmol/L (3.5-5.1)
[2020-11-02 04:30] LABS: URINE BILIRUBIN NEGATIVE (Negative); URINE BLOOD 1+ (Negative); URINE CLARITY CLEAR; URINE COLOR YELLOW; URINE GLUCOSE-RANDOM* 1+ (Negative); URINE KETONES NEGATIVE (Negative); URINE LEUKOCYTES-REFLEX NEGATIVE (Negative); URINE NITRITE-REFLEX NEGATIVE (Negative); URINE PROTEIN (DIPSTICK) NEGATIVE (Negative); URINE SPECIFIC GRAVITY 1.025 (1.005-1.035); URINE UROBILINOGEN 0.2 E.U./dl (0.2-1.0)
[2020-11-02 04:43] LABS: SQUAMOUS 0-3 Few /LPF (0-3)
[2020-11-02 04:44] LABS: BACTERIA-REFLEX None Seen /HPF (None Seen); CASTS None Seen /LPF (None Seen); CRYSTALS None Seen /LPF (None Seen); MUCUS None Seen strn/LPF (None Seen); URINE RBC 3-10 Few /HPF (NONE SEEN); URINE WBC-REFLEX None Seen /HPF (0-5)
[2020-11-02 06:48] VITALS: BP 103/42
--- NOTE | 2020-11-02 07:53 | EKG ---
[place] [address] [facility] [employer] [place] [address] ELECTROCARDIOGRAM REPORT Name: ISIDRA DOWNS Room #: 170-12 ADM IN M.R.#: [id number] Admission: 11/02/20 Attend Phys: Lizandro Morrison, Discharge: Date of : 38 Report #: [id number] [facility] ED Test Date: 2020-11-02 Test Time: 03:32:57 Pat Name: ISIDRA DOWNS Department: Room: 170 Gender: F Helper/Driver: yobany : 1940 Requested By: Ann Gray Order Number: [id number] MD: Otis De Paz Measurements Intervals [place] Rate: 71 P: -29 MI: 182 QRS: -11 QRSD: 165 T: 48 QT: 450 QTc: 490 Interpretive Statements Sinus rhythm IVCD, consider atypical LBBB Compared to ECG 03/01/2018 07:50:50 Poor R-wave progression no longer present Electronically Signed On 11-02-2020 7:52:50 CDT by Otis De Paz [email or web address] <ELECTRONICALLY SIGNED> By: Otis De Paz MD, [facility] 11/02/20 0752 1 1 Otis De Paz MD, FACC /EPI
[2020-11-02 08:21] VITALS: BP 132/59
[2020-11-02 10:43] VITALS: BP 113/61
--- NOTE | 2020-11-02 14:37 | NUR ---
INITIAL ASSESSMENT: GRIFFIN reviewed chart and spoke with nursing and attending physician. Pt was admitted to [facility] from after a fall down multiple stairs at home. Pt is on IV pain meds. Neurosurgery consulted. Pt with T9 compressino fx. SW attempted to meet with pt. Pt having echo done. SW will follow up with pt at a later time. Per chart, pt lives at home with her . PT/OT orders requested to evalute pt for discharge needs. GRIFFIN is following to assist as needed with discharge planning.
--- NOTE | 2020-11-02 15:37 | 2DMMODE ---
[facility] [place] [address] [place] [address] 2 D/M-MODE ECHOCARDIOGRAM Name: ISIDRA DOWNS Room #: 434-P ADM IN M.R.#: [id number] Admission: 11/02/20 Attend Phys: Lizandro Morrison, Discharge: Date of : 38 Report #: [id number] THIS REPORT FOR: cc: Sergio Patricia MD, Michael S. MD Park, Jin S. MD ~ APPROVED REPORT Study performed: 11/02/2020 14:06:09 EXAM: Comprehensive 2D, Doppler, and color-flow Echocardiogram Patient Location: Bedside Room #: 434 Status: routine BSA: 1.63 HR: 71 bpm BP: 113/61 mmHg Rhythm: NSR Other Information Study Quality: Adequate Indications Diabetes Hypertension/HDD 2D Dimensions RVDd: 35.42 mm IVSd: 10.46 (7-11mm) LVOT Diam: 18.18 (18-24mm) LVDd: 37.41 mm PWd: 10.36 (7-11mm) Ascending Ao: 29.30 (22-36mm) LVDs: 23.86 (25-40mm) Aortic Root: 25.13 mm IVC: 16.00 mm Volumes Left Atrial Volume (Systole) Single Plane 4CH: 42.14 mL Single Plane 2CH: 43.62 mL LA ESV Index: 29.00 mL/m2 Aortic Valve AoV Peak Abri.: 1.56 m/s AO Peak Gr.: 9.76 mmHg LVOT Max P.87 mmHg LVOT Max V: 0.85 m/s CLEM Vmax: 1.41 cm2 [facility] [address] [place] [address] 2 D/M-MODE ECHOCARDIOGRAM Name: ISIDRA DOWNS Room #: 434-P [facility]#: [id number] Admission: 11/02/20 Attend Phys: Lizandro Caro Discharge: Date of : 38 Report #: [id number] Mitral Valve E/A Ratio: 0.8 MV Decel. Time: 241.39 ms MV E Max Bari.: 0.97 m/s MV A Bair.: 1.19 m/s MV PHT: 70.00 ms IVRT: 110.73 ms Pulmonary Valve PV Peak Bari.: 0.84 m/s PV Peak Gr.: 2.85 mmHg Pulmonary Vein P Vein S: 0.24 m/s P Vein A: 0.31 m/s P Vein D: 0.21 m/s P Vein A Dur.: 92.3 msec P Vein S/D Ratio: 1.14 Left Ventricle The left ventricle is normal size. There is normal LV segmental wall motion. There is normal left ventricular wall thickness. Left ventricular systolic function is normal. The left ventricular ejection fraction is within the normal range. LVEF is 55-60%. Grade I - abnormal relaxation pattern. Right Ventricle The right ventricle is normal size. The right ventricular systolic function is normal. Atria The left atrium size is normal. The right atrium size is normal. Aortic Valve The aortic valve is normal in structure. No aortic regurgitation is present. There is no aortic valvular stenosis. Mitral Valve The mitral valve is normal in structure. There is no mitral valve regurgitation noted. No evidence of mitral valve stenosis. Tricuspid Valve The tricuspid valve is normal in structure. There is no tricuspid valve regurgitation noted. Pulmonic Valve The pulmonary valve is normal in structure. [place] [address] 2 D/M-MODE ECHOCARDIOGRAM Name: ISIDRA DOWNS Room #: 434-P [facility] IN ..#: [id number] Admission: 11/02/20 Attend Phys: Lizandro Caro Discharge: Date of : 36 Report #: [id number] valvular regurgitation. Great Vessels The aortic root is normal in size. IVC is normal in size and collapses >50% with inspiration. Pericardium There is no pericardial effusion. <Conclusion> The left ventricle is normal size. There is normal left ventricular wall thickness. Left ventricular systolic function is normal. Grade I - abnormal relaxation pattern. The right ventricle is normal size. The left atrium size is normal. The aortic valve is normal in structure. There is no mitral valve regurgitation noted. <ELECTRONICALLY SIGNED> By: Jeremy Fofana MD 11/02/20 1536 35 35 Jeremy Fofana MD /INF
[2020-11-02 16:17] VITALS: BP 129/59
[2020-11-02 19:08] VITALS: BP 152/89
--- NOTE | 2020-11-02 19:50 | NUR ---
ASSUMED PT CARE AT 0800 AT ED. PT IS ALERT & ORIENTED X4. PT HAS IV SITE ON L WRIST 22 GAUGE. PT HAS T9 FRACTURE. PT HAS L TOES AMPUTATED. PT WAS NAUSEATED AND VOMITED AND STATED A LITTLE BIT OF BLURRY VISION BUT NO HEADACHE AND INFORMED MD. INFORMED NIGHT NURSE TO CONTINUE MONITORING PT. PT HAS IS ACCUCHECK. PT STATED USES WALKER AT HOME. ST CHANGED DIET TO MECHANICAL SOFT DIET. PT AT THE BEDSIDE, BED ON THE LOWEST POSITION, SIDE RAILS UP, CALL LIGHT WITHIN REACH. WILL CONTINUE TO MONITOR PT. FOLLOW POC.
--- NOTE | 2020-11-03 03:03 | NUR ---
QUIET NOC . PT C/O PAIN X1 PRN GIVEN ORDERED . MED EFFECTIVE IN BED WITH EYES CLOSED RESPIRATION EVEN NON LABORED. PT ALERT AND ORIENTATED X4. NO S/S OF N/V OR CONFUSION.WILL CONTINUE TO MONITOR.
[2020-11-03 03:36] VITALS: BP 153/66
[2020-11-03 04:42] LABS: ABSOLUTE NEUTROPHILS 3.2 thou/uL (1.4-8.2); BASOPHILS 0.6 % (0.0-2.0); EOSINOPHILS 4.7 % (0.0-3.0); HEMATOCRIT 34.2 % (37.0-47.0); HEMOGLOBIN 11.5 gm/dL (12.0-15.0); LYMPHOCYTES 33.7 % (24.0-44.0); MCH 30.7 pg (26.0-34.0); MCHC 33.5 g/dL (28.0-37.0); MCV 91.7 fL (80.0-100.0); MONOCYTES 7.1 % (1.0-8.0); PLATELET COUNT 165 thou/uL (150-400); POLYS 53.9 % (36.0-66.0); RBC 3.73 mil/uL (4.20-5.00); RDW 13.6 % (10.5-14.5)
[2020-11-03 04:54] LABS: ALBUMIN 3.1 g/dL (3.4-5.0); CALCIUM 8.8 mg/dL (8.5-10.1); CREATININE 1.2 mg/dL (0.6-1.0); POTASSIUM 3.9 mmol/L (3.5-5.1)
[2020-11-03 07:00] VITALS: BP 144/62
--- NOTE | 2020-11-03 09:28 | NUR ---
ASSUMED PT CARE THIS AM. PT IS ALERT & ORIENTED X4. PT HAS IV SITE ON L FA. PT RATED PAIN 4/10 ON HIP AND LEG. GIVEN PAIN MEDICATION PER SCHEDULED. PT TOLERATED BREAKFAST THIS MORNING AND MEDICATION WELL. PT NO C/O OF NAUSE AND VOMITING THIS AM. PT IS ACCUCHECK AFTER MEALS. PT HAS SCD ON. PT AT THE BEDSIDE. PT ON THE BED, BED ON THE LOWEST POSITION, SIDE RAILS UP, CALL LIGHT WITHIN REACH. FOLLOW POC.
[2020-11-03 16:52] VITALS: BP 147/70
--- NOTE | 2020-11-04 06:06 | NUR ---
RECEIVED CARE OF THIS PATIENT AT 1900. PATIENT ALERT AND ORIENTED X4. DRESSING ON BACK D/I. C/O PAIN, MED GIVEN. UP WITH ASSIST OF 1/GB/WALKER. SLEPT OFF AND ON DURING NIGHT.
[2020-11-04 07:25] VITALS: BP 123/48
[2020-11-04 09:44] VITALS: BP 123/48
[2020-11-04] MEDS ORDERED: ACETAMINOPHEN325 M1 PO (09:52)
--- NOTE | 2020-11-04 10:17 | NUR ---
ASSUMED CARE OF PT AT 0700 THIS MORNING. PT IS ADMITTED FOR POST SURGICAL REPAIR OF T-9 AND HAS PAIN IN LEFT HIP AND LOWER BACK. PT FELL DOWN STAIRS AT HOME. PT WAS A/OX4 THIS MORNING. SKIN INTACT WITH BAND AID ON LEFT UPPER BACK WHERE INCISION SITE IS LOCATED. PT IS TOE TOUCH WEIGHT BEARING. SKIN W/D APPROPRIATE TO RACE. NO TENTING NOTED. ABD SOFT NONTENDER WITH ACTIVE BOWEL SOUNDS.CR<3SEC. ASSESSMENTS OTHERWISE UNREMARKABLE. PT WAS GIVEN DISCHARGE ORDERS FROM DR. CRAMER. PHYS. THERAPY IS EVALUATING PT TO MAKE SURE PT CAN BE DISCHARGED.
--- NOTE | 2020-11-04 10:47 | NUR ---
on-going assessment: PT CONTINUES TO WORK WITH THERAPY AND THEY Are reCOMMENDING HOME WITH HOME HEALTH. PT STATING SHE DOES NOT WANT TO GO TO [facility] AND PREFERS HOME WITH HH. PT REPORTS SHE HAS NO PREFERENCE OF HH AGENCY AND HAS HAD [facility] IN THE PAST. CM FAXED REFERRAL TO [facility] AND NOTIFIED LIASON. LIASON STATING SHE WILL MEET WITH PATIENT AND PROVIDE DISCHARGE PAPERWORK TO [facility]. SHE IS AWARE PT IS LEAVING TODAY. CASE CLOSED.
== END 2020-11-04 13:02 | disposition home health service (06) | DRG 516 ==
LOC: ER 01:59 → 4S 05:12 → EROBS 05:12 → 4S 08:15
PROVIDERS: Emergency Medicine; Nurse Practitioner; Surgery; ADMIT Surgery; ATTEND Surgery
PROC: 0PU43JZ Supplement Thoracic Vertebra with Synthetic Substitute, Percutaneous Approach (ICD-10-PCS; principal; 2020-11-03)
PROC: 0PS43ZZ Reposition Thoracic Vertebra, Percutaneous Approach (ICD-10-PCS; principal; 2020-11-03)
DX: S22.079A Unspecified fracture of T9-T10 vertebra, initial encounter for closed fracture (principal); N17.9 Acute kidney failure, unspecified; G89.29 Other chronic pain; E11.42 Type 2 diabetes mellitus with diabetic polyneuropathy; N18.9 Chronic kidney disease, unspecified; Z66 Do not resuscitate; M79.7 Fibromyalgia; R01.1 Cardiac murmur, unspecified; M54.9 Dorsalgia, unspecified; I12.9 Hypertensive chronic kidney disease with stage 1 through stage 4 chronic kidney disease, or unspecified chronic kidney disease; G25.81 Restless legs syndrome; E11.22 Type 2 diabetes mellitus with diabetic chronic kidney disease; Z90.49 Acquired absence of other specified parts of digestive tract; Z85.850 Personal history of malignant neoplasm of thyroid; Z90.710 Acquired absence of both cervix and uterus; Z88.8 Allergy status to other drugs, medicaments and biological substances; Z79.899 Other long term (current) drug therapy; W10.8XXA Fall (on) (from) other stairs and steps, initial encounter; Y93.89 Activity, other specified; Y92.89 Other specified places as the place of occurrence of the external cause; Y99.8 Other external cause status
CPT/HCPCS: 10195

== ENCOUNTER → 2021-04-20 | Outpatient (CLI) | payer OTHER ==
[~2021-04-20] MED LIST changes: +MELOXICAM7.5 MG PO
== END ==
LOC: BC 13:08
PROVIDERS: ATTEND Family Medicine
DX: Z12.31 Encounter for screening mammogram for malignant neoplasm of breast (principal); N64.89 Other specified disorders of breast